=== PATIENT | male | born 1960 | race Caucasian/White ===

== ENCOUNTER 2017-09-02 10:15 | Inpatient (IN) | payer MEDICAID ==
[2017-09-02 10:47] LABS: PLATELET COUNT 372 10^3/uL (150-400)
[2017-09-02 10:57] LABS: INR 1.09 (0.83-1.16)
--- NOTE | 2017-09-02 11:22 | EDPHY ---
General Narrative: Independent physician exam I evaluated and participated in the management of the patient. I also evaluated the patient independently. My co-signature indicates that I have reviewed this chart and I agree with the findings and plan of care as documented. My personal H&P findings include: The patient presents to the ED for evaluation of increasing lower extremity swelling, redness, scrotal swelling , edema and possible urinary tract infection. The patient has a history of diabetes additional comorbidities. The patient is somewhat of a difficult historian. The patient reports he has had some chronic scrotal swelling but has developed scrotal pain. The patient does endorse symptoms of dysuria and back pain. Physical exam General Appearance: Obese male, no acute distress Eyes: Pupils equal and round no pallor or injection ENT, Mouth: Mucous membranes moist Respiratory: There are no retractions, lungs are clear to auscultation Cardiovascular: Regular rate and rhythm Gastrointestinal: Abdomen is soft and nontender, no masses, bowel sounds normal : Scrotal swelling, bilateral testicular tenderness, right greater than left Neurological: A&O, normal motor function, normal sensory exam, normal cranial nerves Skin: Warm and dry, no rashes Musculoskeletal: Neck is supple nontender Extremities: 3+ bilateral pitting edema The patient presents the emergency department with a lower extremity cellulitis , possible scrotal cellulitis, urinary tract infection, fever and SIRS criteria. The patient did not receive a 30 milligram/kilogram bolus as that he has a history of congestive heart failure. The patient did have a elevated venous lactate of 2.5. The patient received IV ceftriaxone and vancomycin. Consultation is made with the hospitalist service for admission. Consultation is also made with Urology. The patient will be admitted to the hospital by Dr. Padilla. I spoke with Dr. Jean Baptiste from Urology at 1:10 p.m.. He will see the patient in consultation. (Hernandez Bauman) CHIEF COMPLAINT: Scrotal edema, UTI, left leg wounds HISTORY OF PRESENT ILLNESS: Patient arrives by EMS with complaints of shortness of breath, lower extremity edema, testicle swelling, urinary tract infection. She reports having a left leg infection for the past 2 weeks, for which he has been taking an antibiotic. He reports increasing swelling of the legs over the past 2 weeks. He reports increasing swelling of the testicles and scrotal the past 4 days. No trauma or injury. No drainage from the penis. No sexual activity in years. He does report being told he has a urinary tract infection by primary care physician, from a urine sample provided yesterday. No antibiotics started for the urinary tract infection. He has no chest pain but does have shortness of breath and orthopnea. He has been diagnosed with CHF in the past. He does not know the name wall is medications. He resides at [facility] due to lower extremity edema and difficulty ambulating. REVIEW OF SYSTEMS: Ten systems reviewed and are negative unless otherwise noted in the HPI PCP: Dr. Kruse SPECIALISTS: Endocrinology at [facility] PAST MEDICAL HISTORY: Hypertension, dyslipidemia, congestive heart failure, diabetes type 2 SOCIAL HISTORY: Nonsmoker. No alcohol. Resides at [facility] FAMILY HISTORY: Noncontributory EXAMINATION General Appearance: Alert, no distress Head: normocephalic, atraumatic Eyes: Pupils equal and round, no conjunctival pallor or injection ENT, Mouth: Mucous membranes moist Neck: Normal inspection, supple, non-tender Respiratory: Lungs are clear to auscultation. No wheezing, rhonchi or crackles. No distress Cardiovascular: Regular rate and rhythm. No murmur Gastrointestinal: Obese abdomen is soft and nondistended. : Edematous scrotum bilaterally. Normal appearing, circumcised penis. No drainage. No erythema. No subcu air of the scrotum. No necrosis noted Neurological: A&O, nonfocal, normal gait Extremities: Nontender, 3+ symmetric pedal edema. There are venous stasis ulcers the left lower extremity with mild surrounding erythema. No palpable fluctuance. Psychiatric: Mood and affect normal DIFFERENTIAL DIAGNOSES: Including but not limited to CHF, edema, stasis ulcers, cellulitis, sepsis, hydrocele, torsion, UTI, urosepsis, pneumonia MDM: 10:20 a.m. Scrotal edema, lower extremity edema with a recent diagnosis of cellulitis of the left leg. He has been on antibiotics for 10 days due does not recall the name of that. He will yesterday by his primary care physician that he has a urinary tract infection and was told to come to the emergency department due to this in the increasing swelling of the legs of the scrotum. I have discussed with Dr. Bauman 11:30 a.m. There is leukocytosis, negative troponin, mildly elevated BNP. Lactic acid is 2.5. Urinalysis is pending. He is currently getting his ultrasounds performed at this time. The antibiotic that he has been on is doxycycline, and he has been on this since August 13. I have not ordered IV fluid due to his diastolic heart failure and significant peripheral edema. 12:07 p.m. Notified by radiologist. Ultrasounds of the lower extremities reveals edema but no DVT. Ultrasound of the scrotum and testicles reveals normal appearing testicles with bilateral hydroceles. The right is larger than the left. The right may have a pyocele present. No orchitis. Still unable to perform urinalysis as he has not provided a sample. I requested a straight catheter in the patient is currently declining. We will attempt to obtain the results from recent urinalysis from primary care physician. 12:15 p.m. Case discussed again with Dr. Bauman. Updated him regarding the ultrasound findings in the urinary tract infection by urinalysis here. He will evaluate the patient. 12:45 p.m. Patient has been evaluated by Dr. Bauman. He will be admitted to the hospital for treatment of the urinary tract infection with IV antibiotics. He will consult Urology due to the possible pyocele. Please see his note for further details. He will be admitted in stable condition. (Rony Laboy) - Diagnostics Imaging Results: Imaging Impressions Chest X-Ray 09/02/17 10:26 Impression: Hypoventilatory features with chronicity-indeterminate elevation of the right hemidiaphragm. Extremity Venous Study 09/02/17 10:27 Impression: Bilateral calf edema. No deep venous thrombosis in the right or left lower extremity. Findings discussed with Emergency Department physician operations and intelligence assistant, Rony Laboy, on September 02, 2017 at 12:07 p.m. Testicular Ultrasound 09/02/17 10:27 Impression: 1. Normal testes. No torsion, mass, or evidence of orchitis. 2. Bilateral large hydroceles, worse right than left. Septations on the right suggest pyocele. Findings discussed with Emergency Department physician operations and intelligence assistant, Rony Laboy, on September 02, 2017 at 12:16 p.m. - Objective Vital Signs: Initial Vital Signs Temperature (C) 99.5 F 09/02/17 10:27 Heart Rate 92 09/02/17 10:27 Respiratory Rate 16 09/02/17 10:27 Blood Pressure 147/75 H 09/02/17 10:27 O2 Sat (%) 92 09/02/17 10:27 O2 Delivery Mode Room Air Allergies/Adverse Reactions: Penicillins Allergy (Verified 09/02/17 10:51) Home Medications: Medication Instructions Recorded Atorvastatin Calcium [Lipitor 40 40 mg PO DAILY 09/02/17 mg (*)] Carvedilol [Coreg (*)] 3.125 mg PO BIDMEAL 09/02/17 Finasteride [Proscar 5 MG (*)] 5 mg PO DAILY 09/02/17 Furosemide [Lasix 80 MG (*)] 160 mg PO BID@08,14 09/02/17 Insulin Regular, Human [HUMULIN R] 0 unit SQ TIDMEAL 09/02/17 Miconazole Nitrate [Desenex] 1 leonard TP BID PRN 09/02/17 Oxybutynin Chloride Xl [Ditropan 5 mg PO DAILY 09/02/17 Xl 5mg (*)] Potassium Cl [Klor-Con 20 meq (*)] 20 meq PO BID 09/02/17 Pregabalin [Lyrica 50mg (*)] 100 mg PO TID 09/02/17 Sennosides/Docusate Sodium 1 each PO DAILY PRN 09/02/17 [Senna-S Tablet] Tamsulosin HCl [Flomax 0.4 MG (*)] 0.8 mg PO DAILY 09/02/17 oxyCODONE IR [Oxycodone Ir (*)] 10 mg PO Q6HRS PRN 09/02/17 Laboratory Results: Laboratory Results 09/02/17 10:18 09/02/17 10:18 09/02/17 09/02/17 09/02/17 13:30 12:24 10:35 WBC RBC Hgb Hct MCV MCH MCHC RDW Plt Count MPV Neut % (Auto) Lymph % (Auto) [place] % (Auto) Eos % (Auto) Baso % (Auto) Nucleat RBC Rel Count Absolute Neuts (auto) Absolute Lymphs (auto) Absolute Monos (auto) Absolute Eos (auto) Absolute Basos (auto) Absolute Nucleated RBC Immature Gran % Immature Gran # PT INR APTT VBG Lactic Acid 2.0 mmol/L mmol/L 2.5 mmol/L H mmol/L (0.7-2.1) (0.7-2.1) Sodium Potassium Chloride Carbon Dioxide Anion Gap BUN Creatinine Estimated GFR Glucose Hemoglobin A1c Estim Average Glucose Calcium Iron TIBC Iron Saturation Ferritin Total Bilirubin Troponin I NT-Pro-B Natriuret Pep Vitamin B12 TSH Urine Color YELLOW Urine Appearance TURBID Urine pH 6.0 (5.0-7.5) Ur Specific [place] 1.029 (1.002-1.030) Urine Protein 2+ H (NEGATIVE) Urine Ketones NEGATIVE (NEGATIVE) Urine Blood 2+ H (NEGATIVE) Urine Nitrate POSITIVE H (NEGATIVE) Urine Bilirubin NEGATIVE (NEGATIVE) Urine Urobilinogen NEGATIVE EU EU (0.2-1.0) Ur Leukocyte Esterase 3+ H (NEGATIVE) Urine RBC 50-182 /hpf H /hpf (0-3) Urine WBC 50-182 /hpf H /hpf (0-3) Ur Epithelial Cells NONE SEEN /lpf /lpf (NONE-1+) Urine Bacteria 1+ /hpf H /hpf (NONE SEEN) Urine Mucus TRACE /lpf /lpf (NONE-1+) Urine Yeast PRESENT /hpf /hpf (NONE SEEN) Urine Glucose 1+ H (NEGATIVE) 09/02/17 09/02/17 09/02/17 10:18 10:18 10:18 WBC RBC Hgb Hct MCV MCH MCHC RDW Plt Count MPV Neut % (Auto) Lymph % (Auto) [place] % (Auto) Eos % (Auto) Baso % (Auto) Nucleat RBC Rel Count Absolute Neuts (auto) Absolute Lymphs (auto) Absolute Monos (auto) Absolute Eos (auto) Absolute Basos (auto) Absolute Nucleated RBC Immature Gran % Immature Gran # PT INR APTT VBG Lactic Acid Sodium 137 mEq/L mEq/L (134-144) Potassium 3.4 mEq/L L mEq/L (3.5-5.2) Chloride 98 mEq/L mEq/L (97-110) Carbon Dioxide 25 mEq/l mEq/l (22-31) Anion Gap 14 mEq/L mEq/L (8-16) BUN 20 mg/dL mg/dL (7-23) Creatinine 1.4 mg/dL H mg/dL (0.7-1.3) Estimated GFR 52 Glucose 259 mg/dL H mg/dL (70-100) Hemoglobin A1c 11.0 % H % (4.0-6.0) Estim Average Glucose 269 mg/dL H mg/dL (68-126) Calcium 8.5 mg/dL mg/dL (8.5-10.4) Iron 17.0 mcg/dL L mcg/dL (49.0-199.0) TIBC 297 ug/dL ug/dL (260-490) Iron Saturation 6 % L % (20-55) Ferritin 102.0 ng/mL ng/mL (17.9-464.0) Total Bilirubin 0.9 mg/dL mg/dL (0.1-1.4) Troponin I 0.027 ng/mL ng/mL (0.000-0.034) NT-Pro-B Natriuret Pep 257 pg/mL H pg/mL (0-125) Vitamin B12 250 pg/mL pg/mL (239-931) TSH 3.190 uIU/mL uIU/mL (0.465-4.680) Urine Color Urine Appearance Urine pH Ur Specific [place] Urine Protein Urine Ketones Urine Blood Urine Nitrate Urine Bilirubin Urine Urobilinogen Ur Leukocyte Esterase Urine RBC Urine WBC Ur Epithelial Cells Urine Bacteria Urine Mucus Urine Yeast Urine Glucose 09/02/17 09/02/17 10:18 10:18 WBC 17.12 10^3/uL H 10^3/uL (3.80-9.50) RBC 4.48 10^6/uL 10^6/uL (4.40-6.38) Hgb 12.0 g/dL L g/dL (13.7-17.5) Hct 36.5 % L % (40.0-51.0) MCV 81.5 fL fL (81.5-99.8) MCH 26.8 pg L pg (27.9-34.1) MCHC 32.9 g/dL g/dL (32.4-36.7) RDW 13.7 % % (11.5-15.2) Plt Count 372 10^3/uL 10^3/uL (150-400) MPV 9.8 fL fL (8.7-11.7) Neut % (Auto) 83.6 % H % (39.3-74.2) Lymph % (Auto) 7.7 % L % (15.0-45.0) [place] % (Auto) 6.9 % % (4.5-13.0) Eos % (Auto) 0.6 % % (0.6-7.6) Baso % (Auto) 0.5 % % (0.3-1.7) Nucleat RBC Rel Count 0.0 % % (0.0-0.2) Absolute Neuts (auto) 14.31 10^3/uL H 10^3/uL (1.70-6.50) Absolute Lymphs (auto) 1.32 10^3/uL 10^3/uL (1.00-3.00) Absolute Monos (auto) 1.18 10^3/uL H 10^3/uL (0.30-0.80) Absolute Eos (auto) 0.11 10^3/uL 10^3/uL (0.03-0.40) Absolute Basos (auto) 0.08 10^3/uL 10^3/uL (0.02-0.10) Absolute Nucleated RBC 0.00 10^3/uL 10^3/uL (0-0.01) Immature Gran % 0.7 % % (0.0-1.1) Immature Gran # 0.12 10^3/uL H 10^3/uL (0.00-0.10) PT 14.0 SEC SEC (12.0-15.0) INR 1.09 (0.83-1.16) APTT 32.6 SEC SEC (23.0-38.0) VBG Lactic Acid Sodium Potassium Chloride Carbon Dioxide Anion Gap BUN Creatinine Estimated GFR Glucose Hemoglobin A1c Estim Average Glucose Calcium Iron TIBC Iron Saturation Ferritin Total Bilirubin Troponin I NT-Pro-B Natriuret Pep Vitamin B12 TSH Urine Color Urine Appearance Urine pH Ur Specific [place] Urine Protein Urine Ketones Urine Blood Urine Nitrate Urine Bilirubin Urine Urobilinogen Ur Leukocyte Esterase Urine RBC Urine WBC Ur Epithelial Cells Urine Bacteria Urine Mucus Urine Yeast Urine Glucose Microbiology Results: MICROBIOLOGY 09/02/17 10:30 Leg - Swab Gram Stain - Final Medications Given: Acetaminophen (Tylenol) 650 mg PO Q4HRS PRN PRN Reason: Pain, Mild/Fever, Can Take PO Stop: 03/01/18 13:46 Last Admin: 09/02/17 15:59 Dose: 650 mg Levofloxacin/Dextrose (Levaquin 750 Mg (Premix)) 150 mls @ 100 mls/hr IV DAILY ROMIE PRN Reason: Protocol Stop: 10/02/17 15:59 Last Admin: 09/02/17 16:45 Dose: 150 mls Oxycodone HCl (Oxycodone Ir) 10 mg PO Q6HRS PRN PRN Reason: Pain, Severe Stop: 09/12/17 14:38 Last Admin: 09/02/17 16:04 Dose: 10 mg Pregabalin (Lyrica) 100 mg PO TID ROMIE Stop: 03/01/18 15:59 Last Admin: 09/02/17 16:05 Dose: 100 mg Discontinued Medications Ceftriaxone Sodium/Dextrose (Rocephin 1 Gm (Premix)) 50 mls @ 100 mls/hr IV EDNOW ONE PRN Reason: Protocol Stop: 09/02/17 13:25 Last Admin: 09/02/17 13:25 Dose: 50 mls Vancomycin/Sodium Chloride (Vancomycin 1 Gm (Premix)) 250 mls @ 250 mls/hr IV EDNOW ONE PRN Reason: Protocol Stop: 09/02/17 13:55 Last Admin: 09/02/17 13:27 Dose: 250 mls Sodium Chloride (Ns) 500 mls @ 1,000 mls/hr IV EDNOW ONE PRN Reason: Protocol Stop: 09/02/17 13:27 Last Admin: 09/02/17 13:26 Dose: 500 mls Sodium Chloride (Ns) 1,000 mls @ 3,000 mls/hr IV ONCE ONE Stop: 09/02/17 14:06 Last Admin: 09/02/17 15:37 Dose: Not Given Morphine Sulfate (Morphine) 4 mg IVP EDNOW ONE Stop: 09/02/17 13:37 Last Admin: 09/02/17 13:44 Dose: 4 mg Ondansetron HCl (Zofran) 4 mg IVP EDNOW ONE Stop: 09/02/17 13:37 Last Admin: 09/02/17 13:44 Dose: 4 mg Departure - Departure Disposition: [facility] Inpatient Acute Clinical Impression: Severe sepsis, Bilateral lower leg cellulitis, Cognitive impairment, Pyelonephritis Diabetes Qualifiers: Diabetes mellitus type: type 2 Diabetes mellitus complication status: with unspecified complications Diabetes mellitus long term care administrator insulin use: unspecified assisted insulin use status Qualified Code(s): E11.8 - Type 2 diabetes mellitus with unspecified complications Condition: Fair
[2017-09-02] MEDS ORDERED: VANCOMYCIN HCL/NORMAL SALINE 250 ML IV ONE (12:56)
[2017-09-02] MEDS ORDERED: NS 500 ML IV ONE (12:58)
[2017-09-02] MEDS ORDERED: ONDANSETRON 4 MG/2 ML VIAL IVP ONE (13:36)
[2017-09-02] MEDS ORDERED: ONDANSETRON DISINTEGRATING 4 MG TAB PO PRN ×2 (13:47→15:13)
[2017-09-02] MEDS ORDERED: ACETAMINOPHEN 325 MG TAB PO PRN (13:47)
[2017-09-02] MEDS ORDERED: HYDROCODONE/APAP 5/325 TAB PO PRN (13:47)
[2017-09-02] MEDS ORDERED: ONDANSETRON 4 MG/2 ML VIAL IVP PRN ×2 (13:47→15:13)
[2017-09-02] MEDS ORDERED: NS 1,000 ML IV ONE (13:47)
[2017-09-02] MEDS ORDERED: oxyCODONE IR 5 MG TAB PO PRN (14:39)
[2017-09-02] MEDS ORDERED: MICONAZOLE NITRATE TP PRN ×2 (14:39→15:13)
[2017-09-02] MEDS ORDERED: SENNOSIDES/DOCUSATE SODIUM TAB PO PRN (14:39)
[2017-09-02] MEDS ORDERED: D50W 25 GM/50 ML SYR IVP PRN ×2 (15:06→15:13)
[2017-09-02] MEDS ORDERED: PROTOCOL POTASSIUM 1 DOSE MISC PRN ×2 (15:10→15:13)
[2017-09-02] MEDS ORDERED: MICONAZOLE NITRATE 15 GM CRTUBE TP PRN (15:23)
--- NOTE | 2017-09-02 15:47 | GHP ---
[f rep st] HISTORY AND PHYSICAL DATE OF ADMISSION: 09/02/2017 CHIEF COMPLAINT: Swollen testicles. HISTORY OF PRESENT ILLNESS: A 57-year-old male with multiple medical comorbidities who has been a re sident at a local [place] [facility] facility for the last 3 weeks after being discharged from a hospital for what t he patient reports as a heart failure admission. The patient describes that his lower extremities an d testicles have been gradually swelling over time and that he developed such severe discomfort of hi s testicles today that he asked to be evaluated. Additionally notes increasing erythema associated w ith some ulcerations on his left lower extremity with increased erythema as well. The patient endors es subjective fevers and chills. Describes some shortness of breath. Denies palpitations or chest p ain. Denies headache or vision changes. Reports normal oral intake and stools. Denies dysuria. PAST MEDICAL HISTORY: 1. Heart failure patient, unsure if it is systolic or diastolic. 2. Diabetes. 3. Hyperlipidemia. 4. Hypertension. 5. Morbid obesity, BMI of 46. 6. Obstructive sleep apnea. Patient refuses CPAP. 7. BPH. 8. Chronic pain. SOCIAL HISTORY: Patient currently lives in a [place] [facility]. Was previously homeless. Denies tobacco , alcohol or illicit drugs. FAMILY HISTORY: Positive for diabetes. ADVANCE DIRECTIVES: The patient wishes to be do not resuscitate. REVIEW OF SYSTEMS: A 10-point review of systems is negative, with the exception of that reported in the HPI. PHYSICAL EXAMINATION: VITAL SIGNS: Blood pressure is 135/64, heart rate 97, respiratory rate 18, 98 % on room air, 38.2. GENERAL: This is a morbidly obese male, sitting up in a chair. HEENT: Notabl e for dry mucous membranes. CARDIAC: Heart sounds are distant but regular. PULMONARY: Decreased b reath sounds on the right. No rales or rhonchi are appreciated. GASTROINTESTINAL: Obese, distended abdomen, positive bowel sounds. ABDOMEN: Nontender in all 4 quadrants. MUSCULOSKELETAL: Notable for 3+ pitting edema above the knees. SKIN: Exam notable for erythema at bilateral ankles, extendin g up the lateral aspect of the left leg. There are 2 open sores visible with surrounding erythema on the lateral aspect of the left leg. NEUROLOGIC: Patient is alert and oriented x3. PSYCHIATRIC: A ppears depressed. DATA: White count is 17.12, hematocrit 36.5, platelets of 372, potassium of 3.4, creatinine of 1.4 b lood glucose of 259, BNP of 257. Urinalysis shows 2+ protein, 2+ blood, positive nitrites, 3+ leukocy te esterase with red and white blood cells measuring 50-182. Chest x-ray, which I personally reviewe d and interpreted, shows no infiltrates or edema. There is right hemidiaphragm elevation. Ultrasoun d of the bilateral lower extremities reviewed, negative for deep venous thrombosis. Testicular ultra sound shows normal testes, bilateral large hydroceles, right worse than left. ASSESSMENT AND PLAN: This is a 57-year-old male presenting with testicular swelling. 1. Sepsis: The patient is presenting with leukocytosis and fever. Presumed source is urinary versu s cellulitis. Blood cultures and urine cultures were obtained from the emergency department. Fluid has been given, and empiric antibiotics with ceftriaxone and vancomycin started. 2. Acute pyelonephritis: Patient has systemic symptoms of fever, with grossly abnormal urine and a history of retention. Will send urine for culture and appropriately cover with ceftriaxone. 3. Suspected acute right heart failure: The patient has marked testicular and lower extremity edema with a clear chest x-ray. Reports untreated sleep apnea as he feels he cannot sleep well with his C PAP. Will check a transthoracic echocardiogram to evaluate pulmonary pressures in the right side of his heart, as well as ejection fraction. Will additionally attempt to get records from [facility] where he [facility] sought cardiac care. Will wait to initiate high-dose IV Lasix as the patient is addit ionally presenting septic, concerned that we may develop issues of hypotension, actively treating wit h diuretics, recommending that the patient elevate his testicles and use GENNY hose if tolerable until we can determine that his hemodynamics will remain stable on diuretics. 4. Diabetes: Will treat with sliding scale insulin and check a hemoglobin A1c. 5. Obstructive sleep apnea: Will further discuss the importance of CPAP therapy with this morbidly obese patient with clinical signs of right heart failure. 6. Normocytic anemia: I do not know what the patient's baseline is. Will need to get old records. 7. Chronic kidney disease: Patient knows that his baseline creatinine is near 1.5, which is how he is presenting. Will follow his renal function daily in the setting of antibiotics and anticipated di uretic treatment. 8. Hypokalemia: I am guessing this is from his very large doses of diuretic at the [place] [facility] [place]. W ill replete per protocol. 9. Benign prostatic hypertrophy: Will continue with home medications once we have established hemod ynamic stability. 10. Prophylaxis with Lovenox. 11. Diet: Cardiac. 12. Disposition: I expect greater than 2 midnights. The patient is quite comorbidly ill, presentin g with sepsis and what appears to be acute right heart failure. I have discussed the case with the e mergency room physician. Patient will be triaged to the medical-surgical floor for care. /[id number]/MODL
[2017-09-02] MEDS: ACETAMINOPHEN 325 MG TAB PO PRN ×2 (15:59→20:24)
[2017-09-02] MEDS ORDERED: PREGABALIN 50 MG CAP PO SCH (16:00)
[2017-09-02] MEDS: oxyCODONE IR 5 MG TAB PO PRN ×2 (16:04→22:17)
[2017-09-02] MEDS: PREGABALIN 50 MG CAP PO SCH ×2 (16:05→22:16)
[2017-09-02] MEDS ORDERED: CARVEDILOL 3.125 MG TAB PO SCH (18:00)
[2017-09-02] MEDS ORDERED: INSULIN LISPRO 100 UNIT/ML SC SCH (18:00)
[2017-09-02] MEDS: CARVEDILOL 3.125 MG TAB PO SCH (18:30)
[2017-09-02] MEDS: INSULIN LISPRO 100 UNIT/ML SC SCH (18:31)
[2017-09-02] MEDS: ENOXAPARIN 40 MG/0.4 ML SYR SC SCH (20:27)
[2017-09-02] MEDS ORDERED: INSULIN GLARGINE 100 UNITS/ML SYRINGE SC SCH (21:00)
[2017-09-02] MEDS ORDERED: POTASSIUM CL 10 MEQ TAB PO ONE (21:03)
--- NOTE | 2017-09-02 21:39 | GCON ---
[f rep st] CONSULTATION DATE OF CONSULTATION: 09/02/2017 REASON FOR CONSULTATION: Urinary tract infection with scrotal infection. HISTORY OF PRESENT ILLNESS: This is a 57-year-old male, who was brought into the emergency room via EMS Services from [facility], for swelling of his lower extremities and testicles. He also r eports that yesterday he was evaluated by the [facility] physician for painful urination and acute swelling of the right testicle. He recalls being told that he had an infection and should prob ably go to the emergency room. He has some increasing redness of the extremities on his lower legs. The patient is a relatively uncontrolled diabetic. Does have shortness of breath, known CHF. Urolo gically, patient has a history of hydronephrosis in the past, which has required a Perera catheter dur ing different hospitalizations. He says scrotal swelling is new and scrotal pain is new in the last few days. PAST MEDICAL HISTORY: Heart failure patient, diabetes, hyperlipidemia, hypertension, morbid obesity, obstructive sleep apnea, BPH, chronic pain. SOCIAL HISTORY: Lives in a snf, was homeless before. Denies tobacco, alcohol, or drugs. FAMILY HISTORY: Positive for diabetes. ALLERGIES: Penicillin. PHYSICAL EXAMINATION: VITAL SIGNS: Blood pressure 145/82, heart rate 96, O2 88 on room air, tempera ture 39.3. GENERAL: This is an obese male, in no acute distress. HEENT: Normocephalic, atraumatic . Extraocular movements intact. NECK: Supple. No lymphadenopathy. Trachea midline. RESPIRATORY: No accessory respiratory muscle use. CARDIAC: Tachycardia, regular rate. The patient has marked lower extremity edema bilaterally with what appears to possibly be lower extremity ulcers. : Abdo men is obese, nontender to palpation. No masses palpated. GI: Normal-appearing phallus, scrotal ed savage bilaterally with mild erythema to the skin. Firmness and tenderness over the right testicle and epididymis uniformly without crepitus on exam. INTEGUMENT: No obvious rashes or lesions. NEUROLOGI C: Patient is alert and oriented. Affect appropriate to situation. MUSCULOSKELETAL: Patient was s upine, moving upper extremities without difficulty. LABORATORY DATA: His white blood cell count is 17.12, hemoglobin 12, hematocrit 36.5, platelets 372. His blood gas: His lactic acid was 2.5 on admission, dropped to 2 when checked again. Chemistry: Sodium 137, potassium 3.4, chloride 98, carbon dioxide 25, anion gap 14, BUN 20, creatinine 1.4, glu cose 259, calcium 8.5, BNP 257. Urine was positive for blood, nitrites and leukocytes. The patient had a scrotal ultrasound done, which I personally reviewed myself, and along with Dr. Ma, shows b ilateral hydroceles, mild septation on the right without overwhelming radiographic evidence for pyoce le by our read. ASSESSMENT/PLAN: Urinary tract infection, right epididymitis. Recommend supportive care for this pa tient, along with IV antibiotics. We will follow along closely and monitor his progress. Scrotum is to be kept propped up and elevated. /[id number]/MODL
[2017-09-02] MEDS: VANCOMYCIN 1.25 GM in D5W 250 ML IV SCH (22:17)
[2017-09-03] MEDS: ACETAMINOPHEN 325 MG TAB PO PRN (04:37)
--- NOTE | 2017-09-03 08:23 | SOAPPROG ---
SOAP Progress Note Assessment/Plan: Assessment: right epididymitis bilateral hydroceles UTI Plan: Continue antibiotics. Stressed importance of elevating scrotum. Will repeat US for comparison. 09/03/17 08:21 Subjective: Same symptoms as yesterday Objective: Vital Signs Temp Pulse Resp BP Pulse Ox 38.9 C H 88 18 121/72 H 90 L 09/03/17 04:00 09/03/17 04:00 09/03/17 04:00 09/03/17 04:00 09/03/17 04:00 Laboratory Results 09/02/17 19:00 09/02/17 09/03/17 09/04/17 05:59 05:59 05:59 Intake Total 1100 Output Total 950 Balance 150 PT 14.0 SEC (12.0-15.0) 09/02/17 10:18 INR 1.09 (0.83-1.16) 09/02/17 10:18 Physical Exam - Physical Exam General Appearance: alert, no apparent distress Respiratory: normal breath sounds, No respiratory distress Male Genitalia: other (bilateral hydroceles with firm, minimally tender testicle on right. no erythema or induration of scrotum) Skin: normal color Neuro/Psych: no motor/sensory deficits ICD10 Worksheet Patient Problems: Problems Problem Status Onset Bilateral lower leg cellulitis Acute Cognitive impairment Acute Diabetes Acute Pyelonephritis Acute Severe sepsis Acute
[2017-09-03] MEDS ORDERED: ATORVASTATIN CALCIUM 40 MG TAB PO SCH (09:00)
[2017-09-03] MEDS ORDERED: ENOXAPARIN 40 MG/0.4 ML SYR SC SCH ×2 (09:00)
[2017-09-03] MEDS: INSULIN LISPRO 100 UNIT/ML SC SCH ×3 (09:09→17:05)
[2017-09-03] MEDS: CARVEDILOL 3.125 MG TAB PO SCH ×2 (09:10→18:04)
[2017-09-03] MEDS: ATORVASTATIN CALCIUM 40 MG TAB PO SCH (09:10)
[2017-09-03] MEDS: PREGABALIN 50 MG CAP PO SCH ×3 (09:10→21:04)
[2017-09-03] MEDS: ENOXAPARIN 40 MG/0.4 ML SYR SC SCH ×3 (09:14→21:09)
[2017-09-03] MEDS ORDERED: ALTEPLASE 2 MG VIAL IVP PRN (09:17)
--- NOTE | 2017-09-03 10:48 | PDMN ---
Medical Necessity Medical necessity: est los >2 mn for sepsis, urinary vs cellulitis, acute pyelonephritis & suspected acute R heart failure, admit for IVF, IV abx, follow cxs; hold diuresis r/t concern for hypotension; comorbid CKD, DM, heart failure , htn, obesity; per H&P & order 09/02/17
--- NOTE | 2017-09-03 11:39 | WOCRNPDOC ---
WOCRN Advanced Assessment Note - Skin Integrity Problem, Advanced Assess Left Lower Lateral Leg Venous Stasis Ulcer Dressing Type: Allevyn Life Dressing Description: Intact, Shadowed Exudate Amount: Moderate Exudate Color: Yellow Exudate Characteristic(s): Seropurulent, Thick Integumentary Issue Intervention: Dressing Changed, Mechanical Debridement My Wound Tissue: Erythema, Swollen, Lipodermatosclerosis Wound Bed Color: [place], Yellow Wound Bed Constitution: Smooth Tissue, Mixed Loose & Adhered Slough/Eschar, De- roofed Purulent Blister Wound Edges: Well Defined Skin Integrity Problem Comment: Patient describes wounds as newly occurring "blisters". Four distint wounds clustered on the left lateral aspect of the leg with moderate, yellow sloughy exudate. Cleaned with NS and mechanically debrided with gauze. Covered temporarily with Adaptic Touch and Mepilex and wrapped with Kerlix. Patient states that he "should" have compression to legs but "they never put it on me" at his place of residence. Patients legs measured for compression stockings. Size G Spandagrips tubed to RN Wayne to apply to bilateral lower legs. Wound care will round again early next week.
--- NOTE | 2017-09-03 13:58 | HOSPPROG ---
Hospitalist Progress Note Assessment/Plan: # Sepsis - 2/2 urinary source (WBC 18 and 39.3) - Blood cultures and urine cultures from ED NGTD - - received IVF hydration overnight - cont empiric antibiotics - Lasix held overnight until hemodynamic stability established # Acute pyelonephritis/epididymitis- US (reviewed) evidence of hydrocele - Patient has systemic symptoms of fever, with grossly abnormal urine and a history of retention. [facility] Urine and blood cx NGTD OSH Urine cx E.coli pansensitive - Levofloxacin resistant - urology following -do not feel pyocele present - continue ceftriaxone - follow [facility] culture results # Suspected acute right heart failure: The patient has marked testicular and lower extremity edema with a clear chest x-ray. Reports untreated sleep apnea oxygen saturations 90% on RA - TTE ordered - GENNY hose - will start IV lasix when PICC established # Diabetes- BS 250-350 overnight - not optimal control in setting of infection - HBA1c 11 on admit - clearly poor control outside as well - increase SSI to high dose - increase glargine (new) to 20 units HS # Left LE wounds/cellulitis - wound care consulting - continue vancomycin IV - cont wound care - GENNY hose # Morbid obesity - BMI 46 # Obstructive sleep apnea- CPAP # Normocytic anemia - believe near his baseline # Chronic kidney disease-Patient knows that his baseline creatinine is near 1.5 , which is how he is presenting. - Will follow his renal function daily in the setting of antibiotics and anticipated diuretic treatment. # Hypokalemia: I am guessing this is from his very large doses of diuretic at the half-way. -Will replete per protocol. # Benign prostatic hypertrophy: Will continue with home medications today # Prophylaxis with Lovenox. # Diet: Cardiac. # Disposition: I expect greater than 2 midnights. The patient is quite comorbidly ill, presenting with sepsis and what appears to be acute right heart failure. I have discussed the case with the emergency room physician. Patient will be triaged to the medical-surgical floor for care. I have discussed the case with Urology - we will proceed with current antibiotics and follow cultures Subjective: upset about swelling Objective: Vital Signs Temp Pulse Resp BP Pulse Ox 38.1 C 88 20 132/68 H 91 L 09/03/17 11:41 09/03/17 11:41 09/03/17 11:41 09/03/17 11:41 09/03/17 11:41 Laboratory Results 09/02/17 19:00 09/02/17 09/03/17 09/04/17 05:59 05:59 05:59 Intake Total 1100 Output Total 950 150 Balance 150 -150 PT 14.0 SEC (12.0-15.0) 09/02/17 10:18 INR 1.09 (0.83-1.16) 09/02/17 10:18 - Physical Exam Constitutional: obese Eyes: anicteric sclera Ears, Nose, Mouth, Throat: moist mucous membranes Cardiovascular: regular rate and rhythym Respiratory: no respiratory distress, no rales or rhonchi Gastrointestinal: normoactive bowel sounds Genitourinary: no bladder fullness Skin: normal color, other (wounds on left left drssing CDI) Musculoskeletal: No asymmetric calves Neurologic: AAOx3 Psychiatric: agitated Lymph, Heme, Immunologic: no cervical LAD ICD10 Worksheet Patient Problems: Problems Problem Status Onset Bilateral lower leg cellulitis Acute Cognitive impairment Acute Diabetes Acute Pyelonephritis Acute Severe sepsis Acute
[2017-09-03] MEDS ORDERED: INSULIN GLARGINE 100 UNITS/ML SYRINGE SC SCH (14:08)
--- NOTE | 2017-09-03 15:20 | ECHO ---
[email or web address] [address] [address] Main: [phone] Fax: Transthoracic Echocardiogram Name: YAA GAONA MR#: [id number] Study Date: 09/03/2017 Study Time: 07:47 AM Date of : 1960 Age: 57 year(s) Height: 185.4 cm (73 in.) Weight: 161.03 kg (355 lb.) BSA: 2.75 m2 Gender: Male Examination: Echo Indication: LE/testicular edema Image Quality: Contrast: Requested by: Stephanie Padilla BP: / Heart Rate: Rhythm: Indication: LE/testicular edema Procedure Staff Urban Sociologist: Jody Villaseñor Reading Physician: Sobia Gerard Requesting Provider: Conclusions: Normal size left ventricle. Mild concentric LV hypertrophy. Global hypercontractility of the left ventricle. The ejection fraction is estimated to be 70-75 %. Mildly dilated right ventricle. Mildly reduced RV function. No significant valvular disease. No prior echo Measurements: Chambers Valvular Assessment AV/MV Valvular Assessment TV/PV Normal Normal Normal Name Value Range Name Value Range Name Value Range Ao Dinah (MM): 3.5 cm (2.2 cm-3.7 AV Vmax: 1.28 m/s (1 m/s-1.7 cm) m/s) IVSd (2D): 1.3 cm (0.6 cm-1.1 AV maxP mmHg ( - ) cm) MV E Vmax: 0.66 m/s ( - ) LVDd (2D): 5.0 cm (4.2 cm-5.9 MV A Vmax: 0.85 m/s ( - ) cm) MV E/A: 0.78 ( - ) LVDs (2D): 3.1 cm (2.1 cm-4 cm) LVPWd (2D): 1.0 cm (0.6 cm-1 cm) LVEF (2D): 68 (>=54 %) EF Range: 70-75 % Continued Measurements: Chambers Valvular Assessment AV/MV Name Value Name Value LADs Lon.6 cm MV E/E' Lateral: 7.80 Patient: YAA GAONA Study Date: 09/03/2017 Page 1 of 2 07:47 AM LA Area: 30.0 cm2 Additional Vessels Name Value Ao Ascendin.4 cm Findings: Left Ventricle: Normal size left ventricle. Mild concentric LV hypertrophy. Global hypercontractility of the left ventricle. The ejection fraction is estimated to be 70-75 %. No regional wall motion abnormality. Right Ventricle: Mildly dilated right ventricle. Mildly reduced RV function. Left Atrium: The left atrium is normal in size. Right Atrium: The right atrium is normal in size. Mitral Valve: The mitral valve is normal in appearance. Tricuspid Valve: The tricuspid valve appears normal. Trivial tricuspid valve regurgitation. Pulmonic Valve: The pulmonic valve is normal in appearance. Pericardium: There is pericardial fat. Exam Comments: TDS - pt is obese and in chair.. (No Signature Object) Patient: YAA GAONA Study Date: 09/03/2017 Page 2 of 2 07:47 AM [id number]
--- NOTE | 2017-09-03 15:20 | ECHO ---
[email or web address] [address] [address] Main: [phone] Fax: Transthoracic Echocardiogram Name: YAA GAONA MR#: [id number] Study Date: 09/03/2017 Study Time: 07:47 AM Date of : 1960 Age: 57 year(s) Height: 185.4 cm (73 in.) Weight: 161.03 kg (355 lb.) BSA: 2.75 m2 Gender: Male Examination: Echo Indication: LE/testicular edema Image Quality: Contrast: Requested by: Stephanie Padilla BP: / Heart Rate: Rhythm: Indication: LE/testicular edema Procedure Staff Kid Club Attendant: Jody Villaseñor Reading Physician: Sobia Gerard Requesting Provider: Conclusions: Normal size left ventricle. Mild concentric LV hypertrophy. Global hypercontractility of the left ventricle. The ejection fraction is estimated to be 70-75 %. Mildly dilated right ventricle. Mildly reduced RV function. No significant valvular disease. No prior echo Measurements: Chambers Valvular Assessment AV/MV Valvular Assessment TV/PV Normal Normal Normal Name Value Range Name Value Range Name Value Range Ao Dinah (MM): 3.5 cm (2.2 cm-3.7 AV Vmax: 1.28 m/s (1 m/s-1.7 cm) m/s) IVSd (2D): 1.3 cm (0.6 cm-1.1 AV maxP mmHg ( - ) cm) MV E Vmax: 0.66 m/s ( - ) LVDd (2D): 5.0 cm (4.2 cm-5.9 MV A Vmax: 0.85 m/s ( - ) cm) MV E/A: 0.78 ( - ) LVDs (2D): 3.1 cm (2.1 cm-4 cm) LVPWd (2D): 1.0 cm (0.6 cm-1 cm) LVEF (2D): 68 (>=54 %) EF Range: 70-75 % Continued Measurements: Chambers Valvular Assessment AV/MV Name Value Name Value LADs Lon.6 cm MV E/E' Lateral: 7.80 Patient: YAA GAONA Study Date: 09/03/2017 Page 1 of 2 07:47 AM LA Area: 30.0 cm2 Additional Vessels Name Value Ao Ascendin.4 cm Findings: Left Ventricle: Normal size left ventricle. Mild concentric LV hypertrophy. Global hypercontractility of the left ventricle. The ejection fraction is estimated to be 70-75 %. No regional wall motion abnormality. Right Ventricle: Mildly dilated right ventricle. Mildly reduced RV function. Left Atrium: The left atrium is normal in size. Right Atrium: The right atrium is normal in size. Mitral Valve: The mitral valve is normal in appearance. Tricuspid Valve: The tricuspid valve appears normal. Trivial tricuspid valve regurgitation. Pulmonic Valve: The pulmonic valve is normal in appearance. Pericardium: There is pericardial fat. Exam Comments: TDS - pt is obese and in chair.. (No Signature Object) Patient: YAA GAONA Study Date: 09/03/2017 Page 2 of 2 07:47 AM [id number]
--- NOTE | 2017-09-03 15:20 | ECHO ---
[email or web address] [address] [address] Main: [phone] Fax: Transthoracic Echocardiogram Name: YAA GAONA MR#: [id number] Study Date: 09/03/2017 Study Time: 07:47 AM Date of : 1960 Age: 57 year(s) Height: 185.4 cm (73 in.) Weight: 161.03 kg (355 lb.) BSA: 2.75 m2 Gender: Male Examination: Echo Indication: LE/testicular edema Image Quality: Contrast: Requested by: Stephanie Padilla BP: / Heart Rate: Rhythm: Indication: LE/testicular edema Procedure Staff Machinist Linotype: Jody Villaseñor Reading Physician: Sobia Gerard Requesting Provider: Conclusions: Normal size left ventricle. Mild concentric LV hypertrophy. Global hypercontractility of the left ventricle. The ejection fraction is estimated to be 70-75 %. Mildly dilated right ventricle. Mildly reduced RV function. No significant valvular disease. No prior echo Measurements: Chambers Valvular Assessment AV/MV Valvular Assessment TV/PV Normal Normal Normal Name Value Range Name Value Range Name Value Range Ao Dinah (MM): 3.5 cm (2.2 cm-3.7 AV Vmax: 1.28 m/s (1 m/s-1.7 cm) m/s) IVSd (2D): 1.3 cm (0.6 cm-1.1 AV maxP mmHg ( - ) cm) MV E Vmax: 0.66 m/s ( - ) LVDd (2D): 5.0 cm (4.2 cm-5.9 MV A Vmax: 0.85 m/s ( - ) cm) MV E/A: 0.78 ( - ) LVDs (2D): 3.1 cm (2.1 cm-4 cm) LVPWd (2D): 1.0 cm (0.6 cm-1 cm) LVEF (2D): 68 (>=54 %) EF Range: 70-75 % Continued Measurements: Chambers Valvular Assessment AV/MV Name Value Name Value LADs Lon.6 cm MV E/E' Lateral: 7.80 Patient: YAA GAONA Study Date: 09/03/2017 Page 1 of 2 07:47 AM LA Area: 30.0 cm2 Additional Vessels Name Value Ao Ascendin.4 cm Findings: Left Ventricle: Normal size left ventricle. Mild concentric LV hypertrophy. Global hypercontractility of the left ventricle. The ejection fraction is estimated to be 70-75 %. No regional wall motion abnormality. Right Ventricle: Mildly dilated right ventricle. Mildly reduced RV function. Left Atrium: The left atrium is normal in size. Right Atrium: The right atrium is normal in size. Mitral Valve: The mitral valve is normal in appearance. Tricuspid Valve: The tricuspid valve appears normal. Trivial tricuspid valve regurgitation. Pulmonic Valve: The pulmonic valve is normal in appearance. Pericardium: There is pericardial fat. Exam Comments: TDS - pt is obese and in chair.. (No Signature Object) Patient: YAA GAONA Study Date: 09/03/2017 Page 2 of 2 07:47 AM [id number]
--- NOTE | 2017-09-03 15:43 | ASMTCMCOM ---
CM Note CM Note Notes: Pt admitted from [facility] where he has a computer terminal operator care bed. Plan is for pt to return at [place]. Faxed clinicals to [facility] at B/M today. C/M to follow. Date Signed: 09/03/2017 03:42 PM Electronically Signed By:Cheri Barajas LCSW
--- NOTE | 2017-09-03 15:43 | ASMTCMCOM ---
CM Note CM Note Notes: Pt admitted from [facility] where he has a intermediate card tender care bed. Plan is for pt to return at [place]. Faxed clinicals to [facility] at B/M today. C/M to follow. Date Signed: 09/03/2017 03:42 PM Electronically Signed By:Cheri Barajas LCSW
--- NOTE | 2017-09-03 15:43 | ASMTCMCOM ---
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 Plan is for pt to return at [place]. Faxed clinicals to [facility] at B/M today. C/M to follow. Date Signed: 09/03/2017 03:42 PM Electronically Signed By:Cheri Barajas LCSW
[2017-09-03] MEDS: FUROSEMIDE 40 MG/4 ML VIAL IVP SCH (16:21)
[2017-09-03 16:30] LABS: PLATELET COUNT 336 10^3/uL (150-400)
[2017-09-03] MEDS: VANCOMYCIN 1.25 GM in D5W 250 ML IV SCH (16:59)
[2017-09-03] MEDS: oxyCODONE IR 5 MG TAB PO PRN (21:03)
[2017-09-04] MEDS ORDERED: VANCOMYCIN 1.25 GM in D5W 250 ML IV SCH (05:00)
[2017-09-04] MEDS ORDERED: POTASSIUM CL 10 MEQ TAB PO ONE ×2 (05:49→13:12)
[2017-09-04] MEDS: INSULIN LISPRO 100 UNIT/ML SC SCH ×3 (06:02→18:14)
[2017-09-04] MEDS: FUROSEMIDE 40 MG/4 ML VIAL IVP SCH ×2 (09:29→14:24)
[2017-09-04] MEDS: PREGABALIN 50 MG CAP PO SCH ×3 (09:31→22:08)
[2017-09-04] MEDS: CARVEDILOL 3.125 MG TAB PO SCH ×2 (09:31→18:15)
[2017-09-04] MEDS: ATORVASTATIN CALCIUM 40 MG TAB PO SCH (09:31)
[2017-09-04] MEDS: ENOXAPARIN 40 MG/0.4 ML SYR SC SCH ×2 (09:32→22:13)
--- NOTE | 2017-09-04 09:36 | HOSPPROG ---
Hospitalist Progress Note Assessment/Plan: Begin 932 # Sepsis - 2/2 urinary source (WBC 18 and 39.3) - Blood cultures negative. Urine culture growing e. coli. Continue current Ceftriaxone. I think we can stop vancomycin at this time. # Acute pyelonephritis vs epididymitis vs scrotal cellulitis - US (reviewed) evidence of hydrocele -Patient has systemic symptoms of fever, with grossly abnormal urine and a history of retention. Continue ceftriaxone. # Suspected acute right heart failure - echo without any evidence of systolic or diastolic HF. # DM2 - uncontrolled with A1c of 11%. Will need to increase Lantus. Will increase conservatively to 25u for now. Patient normally used u500 outside of hospital. Continue TID AC sliding scale. # Left LE wounds/cellulitis - wound care consulting # Morbid obesity - BMI 46 # Obstructive sleep apnea- I do not believe patient is compliant with CPAP # Normocytic anemia - believe near his baseline # Chronic kidney disease- baseline estimated around 1.5. 1.9 today. Repeat daily considering diuresis and vancomycin. # Hypokalemia - normal today at 3.8. # Benign prostatic hypertrophy: Will continue with home medications today # Bowel/Bladder - bowel regimen in place. # DVT prophylaxis - Lovenox. # Dispo - patient resident at [facility]. Subjective: No acute events overnight. Patient states he normally used U500 insulin at home. Reviewed with pharmacy and we do not have on formulary at this time. Patient was anticipating a cardiac diet but we discussed that we'll continue current diet in place for now. Objective: Vital Signs Temp Pulse Resp BP Pulse Ox 37.2 C 73 18 146/80 H 95 09/04/17 04:00 09/04/17 04:00 09/04/17 04:00 09/04/17 04:00 09/04/17 04:00 Laboratory Results 09/04/17 05:00 09/04/17 05:00 09/03/17 09/04/17 09/05/17 05:59 05:59 05:59 Intake Total 1100 1900 Output Total 950 1950 Balance 150 -50 PT 14.0 SEC (12.0-15.0) 09/02/17 10:18 INR 1.09 (0.83-1.16) 09/02/17 10:18 - Physical Exam Constitutional: no apparent distress, appears nourished, not in pain Cardiovascular: regular rate and rhythym, no murmur, rub, or gallop Respiratory: no respiratory distress, no rales or rhonchi, clear to auscultation Gastrointestinal: normoactive bowel sounds, soft, non-tender abdomen, no palpable masses Genitourinary: No recinos in urethra Skin: other (erythematous and swollen scrotum. Not tense.) ICD10 Worksheet Patient Problems: Problems Problem Status Onset Bilateral lower leg cellulitis Acute Cognitive impairment Acute Diabetes Acute Pyelonephritis Acute Severe sepsis Acute
[2017-09-04] MEDS: oxyCODONE IR 5 MG TAB PO PRN ×2 (15:45→22:09)
[2017-09-04] MEDS ORDERED: INSULIN GLARGINE 100 UNITS/ML SYRINGE SC SCH ×2 (21:00)
[2017-09-05 05:26] LABS: PLATELET COUNT 330 10^3/uL (150-400)
[2017-09-05] MEDS: ENOXAPARIN 40 MG/0.4 ML SYR SC SCH ×2 (08:49→20:28)
[2017-09-05] MEDS ORDERED: D50W 25 GM/50 ML SYR IVP PRN (09:31)
[2017-09-05] MEDS: FUROSEMIDE 40 MG/4 ML VIAL IVP SCH ×2 (09:33→13:51)
[2017-09-05] MEDS: INSULIN LISPRO 100 UNIT/ML SC SCH ×3 (09:37→17:20)
[2017-09-05] MEDS: oxyCODONE IR 5 MG TAB PO PRN ×3 (09:38→20:29)
[2017-09-05] MEDS: PREGABALIN 50 MG CAP PO SCH ×3 (09:39→20:29)
[2017-09-05] MEDS: ATORVASTATIN CALCIUM 40 MG TAB PO SCH (09:39)
[2017-09-05] MEDS: CARVEDILOL 3.125 MG TAB PO SCH ×2 (09:40→17:20)
[2017-09-05] MEDS: INSULIN GLARGINE 100 UNITS/ML SYRINGE SC SCH ×2 (10:03→20:28)
--- NOTE | 2017-09-05 17:37 | HOSPPROG ---
Hospitalist Progress Note Assessment/Plan: Begin 932 # Sepsis - 2/2 urinary source (WBC 18 and 39.3) - Blood cultures negative. Urine culture growing e. coli. Continue current Ceftriaxone. I think we can stop vancomycin at this time. # scrotal cellulitis, orchitis - US (reviewed) evidence of hydrocele, orchitis. Continue ceftriaxone based upon urine culture results. WBC is improving with Ceftriaxone and without vancomycin. # Acute/Chronic right heart failure - echo is showing dilated RV and reduced RV function. Patient was on 160mg of Lasix PO as outpatient. Increase to 60mg qAM and 40mg in afternoon. # DM2 - uncontrolled with A1c of 11%. Will need to increase Lantus. Will increase conservatively to 50u BID. Patient normally used u500 outside of hospital. Continue very high dose Humalog TID AC sliding scale. # Left LE wounds/cellulitis - wound care consulting # Obstructive sleep apnea- I do not believe patient is compliant with CPAP. I did discuss with him that untreated CPAP can lead to right sided heart failure. # Chronic kidney disease- baseline estimated around 1.5. 1.6 today. Repeat daily considering diuresis. # Benign prostatic hypertrophy: Will continue with home medications today # Bowel/Bladder - bowel regimen in place. # DVT prophylaxis - Lovenox. # Dispo - patient resident at [facility]. Subjective: No acute events overnight. Patient states his scrotum still seems quite swollen but no subjective fevers or chills. He does state good urine output. We did discuss his right sided heart findings and that I think this likely explains his LE edema. Objective: Vital Signs Temp Pulse Resp BP Pulse Ox 37.4 C 80 15 138/74 H 94 09/05/17 16:40 09/05/17 16:40 09/05/17 16:40 09/05/17 16:40 09/05/17 16:40 Laboratory Results 09/05/17 05:00 09/05/17 13:05 09/04/17 09/05/17 09/06/17 05:59 05:59 05:59 Intake Total 1900 2300 1025 Output Total 4409 3260 1300 Balance -50 -1150 -275 PT 14.0 SEC (12.0-15.0) 09/02/17 10:18 INR 1.09 (0.83-1.16) 09/02/17 10:18 - Physical Exam Constitutional: no apparent distress, appears nourished, not in pain Cardiovascular: regular rate and rhythym, no murmur, rub, or gallop, edema (2+ pitting both LE's. Scrotal edema about grapefruit sized.) Respiratory: no respiratory distress, no rales or rhonchi, clear to auscultation Gastrointestinal: normoactive bowel sounds, soft, non-tender abdomen, no palpable masses Genitourinary: No recinos in urethra Skin: other (lessened erythema of scrotum.) ICD10 Worksheet Patient Problems: Problems Problem Status Onset Bilateral lower leg cellulitis Acute Cognitive impairment Acute Diabetes Acute Pyelonephritis Acute Severe sepsis Acute
[2017-09-06] MEDS: oxyCODONE IR 5 MG TAB PO PRN ×2 (03:48→21:01)
[2017-09-06 04:39] LABS: PLATELET COUNT 432 10^3/uL (150-400)
[2017-09-06] MEDS: FUROSEMIDE 40 MG/4 ML VIAL IVP SCH (08:22)
[2017-09-06] MEDS: INSULIN LISPRO 100 UNIT/ML SC SCH ×3 (08:22→18:10)
[2017-09-06] MEDS: ATORVASTATIN CALCIUM 40 MG TAB PO SCH (08:23)
[2017-09-06] MEDS: CARVEDILOL 3.125 MG TAB PO SCH ×2 (08:23→18:10)
[2017-09-06] MEDS: INSULIN GLARGINE 100 UNITS/ML SYRINGE SC SCH ×2 (08:27→21:05)
[2017-09-06] MEDS: PREGABALIN 50 MG CAP PO SCH ×3 (08:31→21:01)
[2017-09-06] MEDS: ENOXAPARIN 40 MG/0.4 ML SYR SC SCH ×2 (08:39→21:02)
[2017-09-06] MEDS ORDERED: FUROSEMIDE 40 MG/4 ML VIAL IVP SCH (14:00)
--- NOTE | 2017-09-06 14:49 | HOSPPROG ---
Hospitalist Progress Note Assessment/Plan: # Sepsis - 2/2 urinary source (WBC 18 and 39.3) - Blood cultures negative. Urine culture growing e. coli. Continue current Ceftriaxone. Vancomycin was stopped. # scrotal cellulitis, orchitis - US (reviewed) evidence of hydrocele and right sided orchitis. Continue ceftriaxone based upon urine culture results. WBC is up slightly to 14 today from 12 yesterday. No fevers but he does not cloudier appearing urine. Repeat UA and urine culture ordered. I did adjust Ceftriaxone dose to 2g from 1g today with the WBC elevation. Continue ice and elevation and diuresis. # Acute/Chronic right heart failure - echo is showing dilated RV and reduced RV function. Patient was on 160mg of Lasix PO as outpatient. Increase to 60mg qAM and 40mg in afternoon. Continue daily weights (discussed with nursing today ). # DM2 - uncontrolled with A1c of 11%. Some improvement over prior days but still in high 200's. Will need to increase Lantus again to 60u BID. Patient normally used u500 outside of hospital. Continue very high dose Humalog TID AC sliding scale. # Left LE wounds/cellulitis - wound care consulting # Obstructive sleep apnea- I do not believe patient is compliant with CPAP. I did discuss with him that untreated CPAP can lead to right sided heart failure. He states he has been told this in the past as well. # Chronic kidney disease- baseline estimated around 1.5. Repeat daily considering diuresis but he has tolerated increased doses of lasix. # Benign prostatic hypertrophy: Will continue with Flomax and finasteride. # Bowel/Bladder - bowel regimen in place. # DVT prophylaxis - Lovenox. # Dispo - PT ordered. Patient resident at [facility]. Subjective: Patient states his scrotal swelling seems slightly increased from yesterday. He is placing an ice pack under the scrotum. PT did work with him today and he was able to stand but not ambulate outside the room. Objective: Vital Signs Temp Pulse Resp BP Pulse Ox 36.9 C 78 20 151/88 H 93 09/06/17 08:20 09/06/17 08:23 09/06/17 08:20 09/06/17 08:23 09/06/17 08:20 Laboratory Results 09/06/17 03:50 09/06/17 03:50 10/09/06/17 09/07/17 05:59 05:59 05:59 Intake Total 2300 3125 50 Output Total 3450 2300 600 Balance -1150 825 -550 PT 14.0 SEC (12.0-15.0) 09/02/17 10:18 INR 1.09 (0.83-1.16) 09/02/17 10:18 - Physical Exam Constitutional: no apparent distress, appears nourished, not in pain Cardiovascular: regular rate and rhythym, no murmur, rub, or gallop Respiratory: no respiratory distress, no rales or rhonchi, clear to auscultation Gastrointestinal: normoactive bowel sounds, soft, non-tender abdomen, no palpable masses Genitourinary: No recinos in urethra Skin: other (decreased erythema of scrotum but persistent edema.) ICD10 Worksheet Patient Problems: Problems Problem Status Onset Bilateral lower leg cellulitis Acute Cognitive impairment Acute Diabetes Acute Pyelonephritis Acute Severe sepsis Acute
--- NOTE | 2017-09-06 15:58 | ASMTCMCOM ---
CM Note CM Note Notes: Plan is for patient to return to [facility]. He is however not ready to discharge. Case management will continue to follow for discharge needs. Date Signed: 09/06/2017 03:58 PM Electronically Signed By:ORVILLE Clifton
--- NOTE | 2017-09-06 15:58 | ASMTCMCOM ---
CM Note CM Note Notes: Plan is for patient to return to [facility]. He is however not ready to discharge. Case management will continue to follow for discharge needs. Date Signed: 09/06/2017 03:58 PM Electronically Signed By:ORVILLE Clifton
--- NOTE | 2017-09-06 15:58 | ASMTCMCOM ---
CM Note CM Note Notes: Plan is for patient to return to [facility]. He is however not ready to discharge. Case management will continue to follow for discharge needs. Date Signed: 09/06/2017 03:58 PM Electronically Signed By:ORVILLE Clifton
--- NOTE | 2017-09-06 16:55 | ASMTCMCOM ---
CM Note CM Note Notes: Received message from Kristal Salmon that she was notified that patient can return to [facility]. Case management will followup with [facility] and Speak with Jenny from [place] in the morning. Date Signed: 09/06/2017 04:54 PM Electronically Signed By:ORVILLE Clifton
--- NOTE | 2017-09-06 16:55 | ASMTCMCOM ---
CM Note CM Note Notes: Received message from Kristal Salmon that she was notified that patient can return to [facility]. Case management will followup with [facility] and Speak with Jenny from [place] in the morning. Date Signed: 09/06/2017 04:54 PM Electronically Signed By:ORVILLE Clifton
--- NOTE | 2017-09-06 16:55 | ASMTCMCOM ---
CM Note CM Note Notes: Received message from Kristal Salmon that she was notified that patient can return to [facility]. Case management will followup with [facility] and Speak with Jenny from [place] in the morning. Date Signed: 09/06/2017 04:54 PM Electronically Signed By:ORVILLE Clifton
[2017-09-07] MEDS: SENNOSIDES/DOCUSATE SODIUM TAB PO PRN (06:12)
[2017-09-07] MEDS: oxyCODONE IR 5 MG TAB PO PRN ×3 (06:12→21:09)
[2017-09-07 06:59] LABS: PLATELET COUNT 438 10^3/uL (150-400)
[2017-09-07] MEDS: TAMSULOSIN HCL 0.4 MG CAP PO SCH (08:25)
[2017-09-07] MEDS: PREGABALIN 50 MG CAP PO SCH ×3 (08:25→21:09)
[2017-09-07] MEDS: FINASTERIDE 5 MG TAB PO SCH (08:26)
[2017-09-07] MEDS: CARVEDILOL 3.125 MG TAB PO SCH ×2 (08:26→17:46)
[2017-09-07] MEDS: ATORVASTATIN CALCIUM 40 MG TAB PO SCH (08:27)
[2017-09-07] MEDS: ACETAMINOPHEN 325 MG TAB PO PRN (08:30)
[2017-09-07] MEDS: INSULIN LISPRO 100 UNIT/ML SC SCH ×3 (08:32→17:47)
[2017-09-07] MEDS: INSULIN GLARGINE 100 UNITS/ML SYRINGE SC SCH ×2 (08:32→21:10)
[2017-09-07] MEDS: ENOXAPARIN 40 MG/0.4 ML SYR SC SCH ×2 (08:34→20:30)
[2017-09-07] MEDS: FUROSEMIDE 40 MG/4 ML VIAL IVP SCH ×2 (08:35→16:05)
[2017-09-07] MEDS ORDERED: cefTRIAXone 2 GM in D5W 50 ML IV SCH (09:00)
--- NOTE | 2017-09-07 09:08 | HOSPPROG ---
Hospitalist Progress Note Assessment/Plan: # sepsis - resolved # scrotal cellulitis - UCx with e. coli - will change to ancef to cover skin tracy and e. coli # LE edema/ulcers - combination R sided HF, venous insufficiency - diuresis and wound care, compression wraps # R sided HF - cont diuretics # TEJ - CPAP ordered - he is somewhat intolerant # CKD - at baseline SCr 1.5 - follow daily # DM - A1c 11%; significant hyperglycemia here - U500 at home, somewhere around 300U/day reported - increase lantus to 80U bid - cont SSI # BPH - flomax # anemia - stable # thrombocytosis - reactive, follow # lovenox - patient refusing Subjective: appears depressed; tells me his scrotum is getting bigger Objective: Vital Signs Temp Pulse Resp BP Pulse Ox 36.7 C 81 18 146/81 H 94 09/07/17 08:12 09/07/17 08:12 09/07/17 08:12 09/07/17 08:12 09/07/17 08:12 Laboratory Results 09/07/17 06:30 09/07/17 06:30 09/06/17 09/07/17 09/08/17 05:59 05:59 05:59 Intake Total 3125 2490 Output Total 2300 2020 Balance 825 470 PT 14.0 SEC (12.0-15.0) 09/02/17 10:18 INR 1.09 (0.83-1.16) 09/02/17 10:18 chart reviewed US reviewed - Physical Exam Constitutional: obese Cardiovascular: regular rate and rhythym, no murmur, rub, or gallop Respiratory: no respiratory distress, no rales or rhonchi, clear to auscultation Gastrointestinal: normoactive bowel sounds, soft, non-tender abdomen, no palpable masses Genitourinary: other (scrotum very large, erythematous) Musculoskeletal: other (bilat LE with significant edema, erythema) ICD10 Worksheet Patient Problems: Problems Problem Status Onset Severe sepsis Acute Bilateral lower leg cellulitis Acute Diabetes Acute Cognitive impairment Acute Pyelonephritis Acute
[2017-09-07] MEDS: ceFAZolin 2 GM in D5W 100 ML IV SCH ×2 (09:52→17:46)
[2017-09-07] MEDS: METOLAZONE 2.5 MG TAB PO SCH (10:37)
--- NOTE | 2017-09-07 12:52 | WOCRNPDOC ---
WOCRN Advanced Assessment Note - Skin Integrity Problem, Advanced Assess Left Lower Lateral Leg Venous Stasis Ulcer Dressing Type: Alginate (Durafiber Ag), Allevyn Life (x2), Other Other Dressing Type: Spandagrip compression size G Dressing Description: Intact Exudate Color: Yellow Exudate Characteristic(s): Seropurulent Integumentary Issue Intervention: Visualized Under Dressing My Wound Tissue: Erythema, Hot, Swollen, Lipodermatosclerosis, Venous Dermatitis My Wound Swelling: Moderate Wound Bed Color: Yellow Wound Bed Constitution: Smooth Tissue (non-granulating), Loose Slough Site Odor: None Skin Integrity Problem Comment: Assessed wound by rolling up existing Spandagrip compression stocking and peeling back Allevyn dressings. Wound appearance unchanged since assessment on Monday 09/03. There are 4 discrete, circular-shaped wounds (the largest of which is 1.5cm in diameter) along the lateral aspect of patient's LLE, filled w/ loose, liquid slough. The left leg continues to be larger than the right (L 23cm, R 21.5cm), though both lower extremities are edematous. While there is erythema in the periwound tissues, patient also has erythema along this same location on the R leg. Both extremities have skin and tissue alterations associated w/ venous insufficiency. Changed orders to Hydrofera Blue as the primary dressing to confer some antimicrobial benefit, and added cleansing w/ hypochlorus acid solution during dressing changes. He will require ongoing wound care for wounds that, I suspect, are chronic in nature. Recommend ongoing compression and elevation, but this also has to be carefully managed r/t CHF. He would benefit from assessment and treatment by [facility].
[2017-09-08] MEDS: ceFAZolin 2 GM in D5W 100 ML IV SCH ×3 (00:49→18:11)
[2017-09-08 05:03] LABS: PLATELET COUNT 377 10^3/uL (150-400)
[2017-09-08] MEDS: INSULIN LISPRO 100 UNIT/ML SC SCH ×3 (08:38→18:10)
[2017-09-08] MEDS: INSULIN GLARGINE 100 UNITS/ML SYRINGE SC SCH ×3 (08:39→20:35)
[2017-09-08] MEDS: FUROSEMIDE 40 MG/4 ML VIAL IVP SCH ×2 (08:40→16:05)
[2017-09-08] MEDS: ATORVASTATIN CALCIUM 40 MG TAB PO SCH (08:50)
[2017-09-08] MEDS: PREGABALIN 50 MG CAP PO SCH ×3 (08:50→20:35)
[2017-09-08] MEDS: CARVEDILOL 3.125 MG TAB PO SCH ×2 (08:50→18:11)
[2017-09-08] MEDS: FINASTERIDE 5 MG TAB PO SCH (08:51)
[2017-09-08] MEDS: METOLAZONE 2.5 MG TAB PO SCH (08:51)
[2017-09-08] MEDS: TAMSULOSIN HCL 0.4 MG CAP PO SCH (08:51)
[2017-09-08] MEDS: ENOXAPARIN 40 MG/0.4 ML SYR SC SCH ×2 (08:52→20:26)
[2017-09-08] MEDS ORDERED: METOLAZONE 5 MG TAB PO ONE (09:36)
[2017-09-08] MEDS ORDERED: INSULIN GLARGINE 100 UNITS/ML SYRINGE SC ONE (09:45)
--- NOTE | 2017-09-08 09:49 | HOSPPROG ---
Hospitalist Progress Note Assessment/Plan: # sepsis - resolved # scrotal cellulitis - UCx with e. coli - will change to ancef to cover skin tracy and e. coli # LE edema/ulcers - combination R sided HF, venous insufficiency - diuresis and wound care, compression wraps # R sided HF - cont diuretics (lasix 60 IV bid + metolazone 5mg) # TEJ - CPAP ordered - he is somewhat intolerant # CKD - at baseline SCr 1.6 - follow daily # DM - A1c 11%; significant hyperglycemia here - U500 at home, somewhere around 300U/day reported - increase lantus to 100U bid - cont SSI # BPH - flomax # anemia - stable # thrombocytosis - reactive, follow # lovenox - patient refusing Subjective: he is not sure if the redness better; still painful Objective: Vital Signs Temp Pulse Resp BP Pulse Ox 36.6 C 86 22 H 171/87 H 90 L 09/08/17 08:19 09/08/17 08:19 09/08/17 08:19 09/08/17 08:19 09/08/17 08:19 Laboratory Results 09/08/17 04:47 09/08/17 04:47 09/07/17 09/08/17 09/09/17 05:59 05:59 05:59 Intake Total 2490 3200 Output Total 2019 350 Balance 470 2850 PT 14.0 SEC (12.0-15.0) 09/02/17 10:18 INR 1.09 (0.83-1.16) 09/02/17 10:18 high risk on high dose diuretics - Physical Exam Constitutional: obese Ears, Nose, Mouth, Throat: moist mucous membranes, hearing normal Cardiovascular: regular rate and rhythym, no murmur, rub, or gallop Respiratory: no respiratory distress, no rales or rhonchi, clear to auscultation Gastrointestinal: normoactive bowel sounds, soft, non-tender abdomen, no palpable masses Musculoskeletal: other (markedly edematous and erythematous scrotum; bilat LE edema) ICD10 Worksheet Patient Problems: Problems Problem Status Onset Severe sepsis Acute Bilateral lower leg cellulitis Acute Diabetes Acute Cognitive impairment Acute Pyelonephritis Acute
[2017-09-08] MEDS ORDERED: METOLAZONE 2.5 MG TAB PO ONE (10:00)
[2017-09-08] MEDS: AVEENO LOTION TP SCH ×2 (12:32→20:36)
[2017-09-08] MEDS: POTASSIUM CL 20 MEQ TAB PO SCH (12:40)
[2017-09-08] MEDS: oxyCODONE IR 5 MG TAB PO PRN (16:03)
[2017-09-09] MEDS: ceFAZolin 2 GM in D5W 100 ML IV SCH ×3 (01:44→17:15)
[2017-09-09 05:23] LABS: PLATELET COUNT 398 10^3/uL (150-400)
[2017-09-09] MEDS ORDERED: INSULIN GLARGINE 100 UNITS/ML SYRINGE SC SCH (06:00)
[2017-09-09] MEDS: PREGABALIN 50 MG CAP PO SCH ×3 (08:31→21:56)
[2017-09-09] MEDS: TAMSULOSIN HCL 0.4 MG CAP PO SCH (08:32)
[2017-09-09] MEDS: ATORVASTATIN CALCIUM 40 MG TAB PO SCH (08:33)
[2017-09-09] MEDS: METOLAZONE 2.5 MG TAB PO SCH ×2 (08:33→10:43)
[2017-09-09] MEDS: CARVEDILOL 3.125 MG TAB PO SCH ×2 (08:33→18:05)
[2017-09-09] MEDS: FINASTERIDE 5 MG TAB PO SCH (08:33)
[2017-09-09] MEDS: INSULIN GLARGINE 100 UNITS/ML SYRINGE SC SCH ×4 (08:33→21:57)
[2017-09-09] MEDS: POTASSIUM CL 20 MEQ TAB PO SCH (08:33)
[2017-09-09] MEDS: ENOXAPARIN 40 MG/0.4 ML SYR SC SCH ×2 (08:34→21:34)
[2017-09-09] MEDS: FUROSEMIDE 40 MG/4 ML VIAL IVP SCH ×2 (08:34→15:21)
[2017-09-09] MEDS: INSULIN LISPRO 100 UNIT/ML SC SCH ×3 (08:34→18:06)
[2017-09-09] MEDS: AVEENO LOTION TP SCH ×2 (08:35→22:06)
--- NOTE | 2017-09-09 08:40 | HOSPPROG ---
Hospitalist Progress Note Assessment/Plan: # sepsis - resolved # scrotal cellulitis - UCx with e. coli - cont ancef # LE edema/ulcers - combination R sided HF, venous insufficiency - diuresis and wound care, compression wraps # R sided HF - cont diuretics (lasix 60 IV bid + metolazone 5mg) - follow SCr and lytes carefully # TEJ - CPAP ordered - he is somewhat intolerant # CKD - at baseline creatinine # DM - A1c 11%; significant hyperglycemia here - U500 at home, somewhere around 300U/day reported - increase lantus to 115U bid - cont SSI # BPH - flomax # anemia - stable # thrombocytosis - reactive, follow # lovenox - patient refusing Subjective: feels that his scrotum may be slightly smaller today Objective: Vital Signs Temp Pulse Resp BP Pulse Ox 36.9 C 90 17 130/90 H 89 L 09/09/17 07:31 09/09/17 08:33 09/09/17 07:31 09/09/17 08:33 09/09/17 07:31 Microbiology 09/06/17 17:50 Urine Culture - Final Urine,Clean Catch Lissa [place] Laboratory Results 09/09/17 05:00 09/09/17 05:00 09/08/17 09/09/17 09/10/17 05:59 05:59 05:59 Intake Total 3200 2500 100 Output Total 350 900 Balance 2850 1600 100 PT 14.0 SEC (12.0-15.0) 09/02/17 10:18 INR 1.09 (0.83-1.16) 09/02/17 10:18 high risk on IV diuretics - Physical Exam Constitutional: obese Cardiovascular: regular rate and rhythym, no murmur, rub, or gallop Respiratory: no respiratory distress, no rales or rhonchi, clear to auscultation Gastrointestinal: normoactive bowel sounds, soft, non-tender abdomen, no palpable masses Genitourinary: other (significantly enlarged and erythematous scrotum) Musculoskeletal: other (marked bilat LE edema) ICD10 Worksheet Patient Problems: Problems Problem Status Onset Severe sepsis Acute Bilateral lower leg cellulitis Acute Diabetes Acute Cognitive impairment Acute Pyelonephritis Acute
[2017-09-09] MEDS: oxyCODONE IR 5 MG TAB PO PRN ×2 (09:35→15:21)
--- NOTE | 2017-09-09 10:58 | ASMTCMCOM ---
CM Note CM Note Notes: Delia at [facility] asked for last two days of prog notes which were faxed. Pt may not be ready for DC for a few more days. Spoke with Delia about possibility of pt going to wound clinic after DC and she was in agreement. C/M to follow. Date Signed: 09/09/2017 10:57 AM Electronically Signed By:Cheri Barajas LCSW
--- NOTE | 2017-09-09 10:58 | ASMTCMCOM ---
CM Note CM Note Notes: Delia at [facility] asked for last two days of prog notes which were faxed. Pt may not be ready for DC for a few more days. Spoke with Delia about possibility of pt going to wound clinic after DC and she was in agreement. C/M to follow. Date Signed: 09/09/2017 10:57 AM Electronically Signed By:Cheri Barajas LCSW
--- NOTE | 2017-09-09 11:15 | WOCRNPDOC ---
MIYA Advanced Assessment Note - Skin Integrity Problem, Advanced Assess Left Lower Lateral Leg Venous Stasis Ulcer Dressing Type: Trace Bandage, Allevyn Life, Hydrofera Blue Ready Dressing Description: Clean/Dry, Intact Exudate Amount: Minimal Exudate Color: Yellow Exudate Characteristic(s): Serous Integumentary Issue Intervention: Dressing Changed My Wound Tissue: Erythema, Swollen, Lipodermatosclerosis My Wound Swelling: Moderate Wound Bed Color: Albert Lea Wound Bed Constitution: Smooth Tissue, Mixed Loose & Adhered Slough/Eschar Wound Edges: Well Defined Skin Integrity Problem Comment: Patient with spandigrips in place and up in chair where he "always is". Patient states compression to extremities is "going OK". Legs appear less swollen than my last encounter with this patient. Spandigrip and dressings removed from left lower leg. Wounds with less exudate than last week but still with yellow, sloughy drainage. Wounds cleansed with Vashe and gauze. Patient reports tenderness to this area and requested pain medication from his MICHAEL Billings. Skin prep applied to my wound tissue. Half of a Hydrofera Blue Ready was placed over the wound bed and an Allevyn life to hold in place. Smaller Allevyn life placed over anterior leg where it appears an old wound had healed and the skin sloughed off. Patient's spandigrip reapplied to leg. Patient tolerated dressing change well. Report given to MICHAEL Billings. As I see improvement to this wound and surrounding tissue, will continue with current plan.
[2017-09-10] MEDS: ceFAZolin 2 GM in D5W 100 ML IV SCH ×3 (01:38→17:54)
[2017-09-10 06:04] LABS: PLATELET COUNT 484 10^3/uL (150-400)
[2017-09-10] MEDS: POTASSIUM CL 20 MEQ TAB PO SCH (09:50)
[2017-09-10] MEDS: ATORVASTATIN CALCIUM 40 MG TAB PO SCH (09:50)
[2017-09-10] MEDS: METOLAZONE 2.5 MG TAB PO SCH (09:50)
[2017-09-10] MEDS: TAMSULOSIN HCL 0.4 MG CAP PO SCH (09:51)
[2017-09-10] MEDS: FINASTERIDE 5 MG TAB PO SCH (09:51)
[2017-09-10] MEDS: ENOXAPARIN 40 MG/0.4 ML SYR SC SCH ×2 (09:51→22:19)
[2017-09-10] MEDS: PREGABALIN 50 MG CAP PO SCH ×3 (09:51→21:35)
[2017-09-10] MEDS: INSULIN LISPRO 100 UNIT/ML SC SCH ×3 (09:52→18:13)
[2017-09-10] MEDS: CARVEDILOL 3.125 MG TAB PO SCH ×2 (09:52→17:54)
[2017-09-10] MEDS: INSULIN GLARGINE 100 UNITS/ML SYRINGE SC SCH ×4 (09:52→21:36)
[2017-09-10] MEDS: AVEENO LOTION TP SCH ×2 (09:53→21:36)
[2017-09-10] MEDS: FUROSEMIDE 40 MG/4 ML VIAL IVP SCH (09:53)
[2017-09-10] MEDS: oxyCODONE IR 5 MG TAB PO PRN ×2 (10:16→15:56)
--- NOTE | 2017-09-10 11:39 | HOSPPROG ---
Hospitalist Progress Note Assessment/Plan: # sepsis - resolved # scrotal cellulitis - UCx with e. coli; white count has not normalized; pct relatively low - cont ancef - urology will reevaluate today to help decide on abx duration # R sided HF, venous insufficiency, LE edema and ulcers - feeling lightheaded today - will check orthostatics and hold lasix in pm - diuresis and wound care, compression wraps - follow SCr and lytes carefully # TEJ - CPAP ordered - he did not tolerate last night # CKD - at baseline creatinine; follow daily # DM - A1c 11%; significant hyperglycemia here - U500 at home, somewhere around 300U/day reported - increase lantus again today - cont SSI # BPH - flomax # anemia - stable # thrombocytosis - reactive, follow # lovenox - patient has been refusing Subjective: feels his scrotum is smaller Objective: Vital Signs Temp Pulse Resp BP Pulse Ox 36.7 C 81 18 129/94 H 92 09/10/17 07:42 09/10/17 09:52 09/10/17 07:42 09/10/17 09:52 09/10/17 07:42 Laboratory Results 09/10/17 05:50 09/10/17 05:50 09/09/17 09/10/17 09/11/17 05:59 05:59 05:59 Intake Total 2500 1979 Output Total 900 Balance 1600 1979 PT 14.0 SEC (12.0-15.0) 09/02/17 10:18 INR 1.09 (0.83-1.16) 09/02/17 10:18 - Physical Exam Constitutional: no apparent distress, obese Cardiovascular: regular rate and rhythym, no murmur, rub, or gallop Respiratory: no respiratory distress, no rales or rhonchi, clear to auscultation Gastrointestinal: normoactive bowel sounds, soft, non-tender abdomen, no palpable masses Genitourinary: other (scrotum size decreasing) ICD10 Worksheet Patient Problems: Problems Problem Status Onset Severe sepsis Acute Bilateral lower leg cellulitis Acute Diabetes Acute Cognitive impairment Acute Pyelonephritis Acute
--- NOTE | 2017-09-10 14:32 | SOAPPROG ---
SOAP Progress Note Assessment/Plan: Assessment: right orchitis bilateral hydroceles urinary incontinence Plan: Recommend antibiotics be extended to 2 or 3 weeks given persistently elevated WBC. Consider repeat Scrotal US next week if WBC does not decrease. No workup for incontinence which patient says occurs for him and is likely worsened with diuresis. 09/10/17 14:30 Subjective: Less swelling and pain Objective: Vital Signs Temp Pulse Resp BP Pulse Ox 36.7 C 81 18 129/94 H 92 09/10/17 07:42 09/10/17 09:52 09/10/17 07:42 09/10/17 09:52 09/10/17 07:42 Laboratory Results 09/10/17 05:50 09/10/17 05:50 09/09/17 09/10/17 09/11/17 05:59 05:59 05:59 Intake Total 2500 1980 Output Total 900 Balance 1600 1980 PT 14.0 SEC (12.0-15.0) 09/02/17 10:18 INR 1.09 (0.83-1.16) 09/02/17 10:18 Physical Exam - Physical Exam General Appearance: alert, no apparent distress Respiratory: normal breath sounds Abdomen: soft Male Genitalia: other (soft fluctuant genital exam consistent with hydroceles. Right testicle remains firm and swollen but less tender. No erythema. Incontinence apparent during exam) ICD10 Worksheet Patient Problems: Problems Problem Status Onset Bilateral lower leg cellulitis Acute Cognitive impairment Acute Diabetes Acute Pyelonephritis Acute Severe sepsis Acute
[2017-09-10] MEDS: POTASSIUM CL 10 MEQ TAB PO SCH (15:56)
[2017-09-11] MEDS: ceFAZolin 2 GM in D5W 100 ML IV SCH ×3 (01:54→16:52)
[2017-09-11 06:02] LABS: PLATELET COUNT 434 10^3/uL (150-400)
[2017-09-11] MEDS: TAMSULOSIN HCL 0.4 MG CAP PO SCH (08:21)
[2017-09-11] MEDS: POTASSIUM CL 20 MEQ TAB PO SCH (08:21)
[2017-09-11] MEDS: ATORVASTATIN CALCIUM 40 MG TAB PO SCH (08:21)
[2017-09-11] MEDS: METOLAZONE 2.5 MG TAB PO SCH (08:21)
[2017-09-11] MEDS: CARVEDILOL 3.125 MG TAB PO SCH ×2 (08:21→16:51)
[2017-09-11] MEDS: INSULIN GLARGINE 100 UNITS/ML SYRINGE SC SCH ×4 (08:22→20:48)
[2017-09-11] MEDS: INSULIN LISPRO 100 UNIT/ML SC SCH ×3 (08:22→18:15)
[2017-09-11] MEDS: FINASTERIDE 5 MG TAB PO SCH (08:22)
[2017-09-11] MEDS: PREGABALIN 50 MG CAP PO SCH ×3 (08:22→20:49)
[2017-09-11] MEDS: AVEENO LOTION TP SCH ×2 (08:25→20:46)
[2017-09-11] MEDS: ENOXAPARIN 40 MG/0.4 ML SYR SC SCH ×2 (08:26→22:36)
[2017-09-11] MEDS ORDERED: FUROSEMIDE 40 MG/4 ML VIAL IVP ONE (11:00)
[2017-09-11] MEDS: FUROSEMIDE 100 MG/10 ML VIAL IVP ONE ×2 (11:47→11:49)
--- NOTE | 2017-09-11 14:22 | HOSPPROG ---
Hospitalist Progress Note Assessment/Plan: * Sepsis * Scrotal cellulitis, orchitis, possible pyocele -IV ancef -urology recommends 2-3 weeks antibiotics -will consult ID * COR Pulmonale - right heart failure - massive volume overload with scrotal edema -restart IV lasix -elevate scrotum as able * CKD - at baseline creatinine 1.4 * Agitation - very aggressive with staff -try low dose zyprexa * DM II - HgA1c 11 - uncontrolled -U500 at home, around 300 units per day -continue to increase Lantus as needed * Morbid obesity BMI 45 * BPH - flomax * TEJ - CPAP intolerant Subjective: no new complaints Objective: Vital Signs Temp Pulse Resp BP Pulse Ox 37.3 C 85 16 117/73 91 L 09/11/17 08:00 09/11/17 08:21 09/11/17 08:00 09/11/17 08:21 09/11/17 08:00 Laboratory Results 09/11/17 05:50 09/11/17 12:55 09/10/17 09/11/17 09/12/17 05:59 05:59 05:59 Intake Total 1979 3140 Balance 1979 3140 PT 14.0 SEC (12.0-15.0) 09/02/17 10:18 INR 1.09 (0.83-1.16) 09/02/17 10:18 CXR viewed, my personal interpretation is - elevated right hemidiaphragm scrotal us - possible pyocele - Physical Exam Constitutional: no apparent distress, appears nourished, not in pain Cardiovascular: regular rate and rhythym, no murmur, rub, or gallop, edema ( massive scrotal edema) Respiratory: no respiratory distress, no rales or rhonchi, clear to auscultation Gastrointestinal: normoactive bowel sounds, soft, non-tender abdomen, no palpable masses Skin: no rashes or abrasions, no fluctuance, no induration Neurologic: AAOx3, sensation intact bilaterally Psychiatric: interacting appropriately, not encephalopathic, thought process linear, anxious, agitated ICD10 Worksheet Patient Problems: Problems Problem Status Onset Bilateral lower leg cellulitis Acute Cognitive impairment Acute Diabetes Acute Pyelonephritis Acute Severe sepsis Acute
[2017-09-11] MEDS: FUROSEMIDE 40 MG/4 ML VIAL IVP SCH (15:31)
[2017-09-11] MEDS: POTASSIUM CL 10 MEQ TAB PO SCH (15:31)
[2017-09-11] MEDS: oxyCODONE IR 5 MG TAB PO PRN ×2 (17:22→23:57)
[2017-09-11] MEDS: OLANZapine 2.5 MG TAB PO SCH (20:49)
[2017-09-12] MEDS: ceFAZolin 2 GM in D5W 100 ML IV SCH ×3 (00:04→16:42)
[2017-09-12 04:51] LABS: PLATELET COUNT 436 10^3/uL (150-400)
[2017-09-12] MEDS ORDERED: PROTOCOL POTASSIUM 1 DOSE MISC PRN (08:33)
[2017-09-12] MEDS: FUROSEMIDE 40 MG/4 ML VIAL IVP SCH ×3 (08:53→22:03)
[2017-09-12] MEDS: POTASSIUM CL 20 MEQ TAB PO SCH (08:57)
[2017-09-12] MEDS: ATORVASTATIN CALCIUM 40 MG TAB PO SCH (08:57)
[2017-09-12] MEDS: OLANZapine 2.5 MG TAB PO SCH ×2 (08:57→20:37)
[2017-09-12] MEDS: CARVEDILOL 3.125 MG TAB PO SCH ×2 (08:58→17:02)
[2017-09-12] MEDS: TAMSULOSIN HCL 0.4 MG CAP PO SCH (08:58)
[2017-09-12] MEDS: FINASTERIDE 5 MG TAB PO SCH (08:58)
[2017-09-12] MEDS: METOLAZONE 2.5 MG TAB PO SCH (08:59)
[2017-09-12] MEDS: INSULIN LISPRO 100 UNIT/ML SC SCH ×3 (08:59→17:27)
[2017-09-12] MEDS: INSULIN GLARGINE 100 UNITS/ML SYRINGE SC SCH ×4 (09:00→20:40)
[2017-09-12] MEDS: ENOXAPARIN 40 MG/0.4 ML SYR SC SCH ×2 (09:02→20:39)
[2017-09-12] MEDS: PREGABALIN 50 MG CAP PO SCH ×4 (09:52→22:02)
[2017-09-12] MEDS ORDERED: POTASSIUM CL 10 MEQ TAB PO ONE ×2 (12:16→20:05)
--- NOTE | 2017-09-12 14:23 | HOSPPROG ---
Hospitalist Progress Note Assessment/Plan: * Sepsis * Scrotal cellulitis, orchitis, possible pyocele -IV ancef -urology recommends 2-3 weeks antibiotics -will consult ID * COR Pulmonale - right heart failure - massive volume overload with scrotal edema -IV lasix + metolazone - follow daily weights -elevate scrotum as able * CKD - at baseline creatinine 1.6 * Agitation - very aggressive with staff -low dose zyprexa * DM II - HgA1c 11 - uncontrolled -U500 at home, around 300 units per day -continue to increase Lantus as needed * Morbid obesity BMI 45 * BPH - flomax * TEJ - CPAP intolerant Subjective: Anxious to get swelling off Objective: Vital Signs Temp Pulse Resp BP Pulse Ox 36.7 C 75 15 136/79 H 89 L 09/12/17 08:00 09/12/17 08:00 09/12/17 08:00 09/12/17 08:00 09/12/17 08:00 Laboratory Results 09/12/17 04:10 09/12/17 04:10 09/11/17 09/12/17 09/13/17 05:59 05:59 05:59 Intake Total 3140 2308 Balance 3140 2308 PT 14.0 SEC (12.0-15.0) 09/02/17 10:18 INR 1.09 (0.83-1.16) 09/02/17 10:18 - Physical Exam Constitutional: no apparent distress, appears nourished, not in pain Cardiovascular: regular rate and rhythym, no murmur, rub, or gallop, edema (3+ with massive scrotal edema) Respiratory: no respiratory distress, no rales or rhonchi, clear to auscultation Skin: no rashes or abrasions, no fluctuance, no induration Neurologic: AAOx3, sensation intact bilaterally Psychiatric: interacting appropriately, not anxious, not encephalopathic, thought process linear ICD10 Worksheet Patient Problems: Problems Problem Status Onset Bilateral lower leg cellulitis Acute Cognitive impairment Acute Diabetes Acute Pyelonephritis Acute Severe sepsis Acute
--- NOTE | 2017-09-12 16:19 | ASMTCMCOM ---
CM Note CM Note Notes: Pt still not cleared for d/c. D/c plan is still to return to [facility]. Date Signed: 09/12/2017 04:18 PM Electronically Signed By:ORVILLE Perales
--- NOTE | 2017-09-12 16:19 | ASMTCMCOM ---
CM Note CM Note Notes: Pt still not cleared for d/c. D/c plan is still to return to [facility]. Date Signed: 09/12/2017 04:18 PM Electronically Signed By:ORVILLE Perales
[2017-09-12] MEDS: POTASSIUM CL 10 MEQ TAB PO SCH ×2 (16:42→17:02)
[2017-09-12] MEDS: AVEENO LOTION TP SCH ×2 (16:47→22:04)
[2017-09-12] MEDS ORDERED: INSULIN LISPRO 100 UNIT/ML SC ONE (21:50)
[2017-09-12] MEDS: oxyCODONE IR 5 MG TAB PO PRN (22:02)
[2017-09-13] MEDS: ceFAZolin 2 GM in D5W 100 ML IV SCH ×2 (01:27→08:30)
[2017-09-13] MEDS: FUROSEMIDE 40 MG/4 ML VIAL IVP SCH (05:23)
[2017-09-13 05:39] LABS: PLATELET COUNT 472 10^3/uL (150-400)
[2017-09-13] MEDS ORDERED: POTASSIUM CL 10 MEQ TAB PO ONE ×2 (07:23→20:11)
[2017-09-13] MEDS: INSULIN LISPRO 100 UNIT/ML SC SCH ×2 (08:19→11:51)
[2017-09-13] MEDS: TAMSULOSIN HCL 0.4 MG CAP PO SCH (08:20)
[2017-09-13] MEDS: FINASTERIDE 5 MG TAB PO SCH (08:20)
[2017-09-13] MEDS: INSULIN GLARGINE 100 UNITS/ML SYRINGE SC SCH ×4 (08:20→22:02)
[2017-09-13] MEDS: PREGABALIN 50 MG CAP PO SCH ×3 (08:21→22:02)
[2017-09-13] MEDS: ATORVASTATIN CALCIUM 40 MG TAB PO SCH (08:21)
[2017-09-13] MEDS: OLANZapine 2.5 MG TAB PO SCH (08:21)
[2017-09-13] MEDS: CARVEDILOL 3.125 MG TAB PO SCH ×2 (08:21→18:13)
[2017-09-13] MEDS: POTASSIUM CL 20 MEQ TAB PO SCH (08:23)
[2017-09-13] MEDS: METOLAZONE 2.5 MG TAB PO SCH (08:23)
[2017-09-13] MEDS: ENOXAPARIN 40 MG/0.4 ML SYR SC SCH ×2 (08:30→22:01)
[2017-09-13] MEDS ORDERED: acetaZOLAMIDE 500 MG in SYRINGE 0 ML IVP ONE (08:38)
[2017-09-13] MEDS ORDERED: FUROSEMIDE 40 MG/4 ML VIAL IVP SCH (09:00)
[2017-09-13] MEDS: AVEENO LOTION TP SCH ×2 (10:07→22:03)
[2017-09-13] MEDS ORDERED: OLANZapine 2.5 MG TAB PO PRN (12:46)
[2017-09-13] MEDS ORDERED: D50W 25 GM/50 ML SYR IVP PRN (12:48)
--- NOTE | 2017-09-13 13:40 | GCON ---
[f rep st] CONSULTATION INFECTIOUS DISEASE CONSULTATION DATE OF CONSULTATION: 09/13/2017 REFERRING PHYSICIAN: Karine Stephen MD REASON FOR CONSULTATION: Right-sided orchitis. HISTORY OF PRESENT ILLNESS: Patient is a 57-year-old male with a past medical history of congestive heart failure and diabetes mellitus with chronic lower extremity edema who I am asked to see in consultation for right-sided orchitis. Patient describes requiring an indwelling Perera catheter periodically and most recently in July for approximately 3 or 4 weeks related to urinary retention. He has experienced catheter associated UTI in the past. Over the last month, the patient notes that he has experienced increasing swelling, which has ultimately involved the genital region. Approximately 10 days ago, he developed significant increase in testicular pain, prompting further evaluation. He had subjective fever and chills associated with the increase in pain. He did not experience dysuria. Upon presentation, he was noted to have a white count of 17,000. Testicular ultrasound was obtained, which showed normal appearing testes with bilateral large hydroceles with some septation present on the right suggestive of possible pyocele. The patient notes that his right testicle has been quite firm in texture. He was initially treated with ceftriaxone, which subsequently was transitioned to cefazolin. This transition occurred on 09/07/2017. Urine culture that was obtained at time of presentation shows growth of E coli, which is resistant to levofloxacin, but otherwise susceptible to tested agents. He also had a wound swab of a leg ulceration obtained, which showed presence of group A Streptococcus. Patient feels like he has been experiencing gradual improvement, although he has ongoing firm texture to the right testicle with continued tenderness. He has faint erythema over his scrotal region and notes a leathery thickening. His white blood cell count has remained elevated between 11,000 and 14,000 recently. Given the above findings, I am now asked to assist in his ongoing management. PAST MEDICAL HISTORY: Congestive heart failure with chronic lower extremity edema, diabetes mellitus, hypertension, hyperlipidemia, obesity, obstructive sleep apnea, BPH, possible neurogenic bladder, chronic pain. PAST SURGICAL HISTORY: Patient notes prior Perera catheter requirements for urinary retention. CURRENT MEDICATIONS: Cefazolin 2 g IV q.8 hours, Flomax 0.8 mg p.o. daily, Lipitor 40 mg p.o. daily, Coreg 3.125 mg p.o. b.i.d., Aveeno lotion applied b.i.d., Lovenox 40 mg subcu b.i.d., Proscar 5 mg p.o. daily, Lasix 60 mg IV b.i.d., Lantus insulin 150 units subcu b.i.d., insulin sliding scale, Zyprexa 2.5 mg p.o. b.i.d., Lyrica 100 mg p.o. t.i.d. ALLERGIES: Penicillin as a child with unclear reaction. No problems with cefazolin. SOCIAL HISTORY: Patient does not smoke, drink alcohol, or use drugs. FAMILY HISTORY: Diabetes mellitus. REVIEW OF SYSTEMS: Outside that noted in the HPI, remainder of 10 system review is unremarkable. PHYSICAL EXAMINATION: VITAL SIGNS: Temperature maximum 37.4, temperature current 36.7, heart rate 94, respiratory rate 18, blood pressure 130/81, oxygen saturation 93% on room air. GENERAL: Patient is an obese male in no acute distress. He appears nontoxic. HEENT: There is no scleral icterus, conjunctival injection, or conjunctival petechiae. Oropharynx shows moist mucous membranes with no thrush. There is no tenderness over the frontal, maxillary, or mastoid area. There is no nasal discharge. NECK: Supple without palpable lymphadenopathy or thyromegaly. CHEST: Clear to auscultation bilaterally without adventitious sounds. The respiratory effort is normal. CARDIOVASCULAR: Regular rate and rhythm without murmurs, gallops, or rubs. ABDOMEN: Obese, nontender, nondistended. Organomegaly assessment is limited by body habitus. Bowel sounds are present. MUSCULOSKELETAL: There is 3+ edema of both lower extremities. : There is scrotal edema and thickening, with faint overlying erythema; the right testicle is enlarged and firm to palpation with mild tenderness; there are no palpable fluctuant areas. It is difficult to retract the penile foreskin, and when done, there is a small amount of purulent liquid, which drains. SKIN: Bilateral venous insufficiency changes of the lower extremity; small ulceration laterally on left. No active cellulitis present. NEUROLOGIC: Patient is alert and interacts appropriately with examiner. Cranial nerves 2-12 are grossly intact. Sensation is grossly intact. LYMPHATICS: There are no cervical or supraclavicular nodes. No lymphangitis in the lower extremities. LABORATORY/IMAGING: White blood cell count 14.9, hematocrit 35.9, platelets 472 , neutrophils 78%. Serum creatinine is 1.9. Urinalysis on 09/06/2017, showed 50-182 white blood cells. Urine culture on 09/02/2017, shows greater than 100, 000 E coli resistant to fluoroquinolones. Leg swab on 09/02/2017, showed group A Streptococcus. Urine culture on 09/06/2017 shows greater than 100,000 Lissa glabrata. Ultrasound as outlined above from 09/02/2017, which was reviewed by me with Radiology today. IMPRESSION: Right-sided orchitis associated with chronic lower extremity and more recent scrotal edema related to congestive heart failure: Most likely, this will be due to enteric tracy. Urine culture shows isolation of Escherichia coli, but this may not be the only contributing pathogen. Initial ultrasound shows some septations within hydrocele raising question of superinfection in this space. He has gradually improved with antibiotic therapy. Anticipate this will be a slow resolution. Given the septations previously present on ultrasound, we will reassess with repeat ultrasound to determine if this has resolved or if further considerations for infected hydrocele remain. RECOMMENDATIONS: 1. Ceftriaxone 2 g IV q.24 hours as this will provide broader activity against other potential enteric gram-negative organisms. 2. Discontinue cefazolin. 3. Testicular ultrasound. 4. Follow clinical response to above measures and repeat ultrasound findings as available. 5. Will review further with Urology once ultrasound has been performed. Thank you for this consultation. We will continue to follow the patient with you. /[id number]/MODL MTDD
--- NOTE | 2017-09-13 15:31 | HOSPPROG ---
Hospitalist Progress Note Assessment/Plan: * Sepsis * Scrotal cellulitis, orchitis, possible pyocele/infected hydrocele -IV ceftriaxone per ID -urology following - ? prolonged abx vs. intervention * COR Pulmonale - right heart failure - massive volume overload with scrotal edema -IV lasix + metolazone - follow daily weights -elevate scrotum as able -hold diuretic today given creatinine elevation -Diamox x 1 for contraction alkalosis * CKD - baseline creatinine 1.6 -check renal US as recent history of urinary retention requiring recinos * Agitation - very aggressive with staff at times -low dose zyprexa prn -staff concerned he is depressed - consider psych consult - will consult Yudi Mercer * DM II - HgA1c 11 - uncontrolled -U500 at home, around 300 units per day equivalent -continue to increase Lantus as needed -change sliding scale to very high dose regular * Morbid obesity BMI 45 * BPH - flomax, proscar * TEJ - CPAP intolerant Subjective: Scrotum is getting better Objective: Vital Signs Temp Pulse Resp BP Pulse Ox 36.7 C 94 18 130/81 H 93 09/13/17 08:00 09/13/17 08:21 09/13/17 08:00 09/13/17 08:21 09/13/17 08:00 Laboratory Results 09/13/17 05:30 09/13/17 05:30 09/12/17 09/13/17 09/14/17 05:59 05:59 05:59 Intake Total 2308 3500 Balance 2308 3500 PT 14.0 SEC (12.0-15.0) 09/02/17 10:18 INR 1.09 (0.83-1.16) 09/02/17 10:18 d/w Dr. Quezada regarding consultation today Scrotal US - mostly the same - Physical Exam Constitutional: no apparent distress, appears nourished, not in pain Cardiovascular: regular rate and rhythym, no murmur, rub, or gallop, edema (3+ but much better. Scrotum still very swollen but improved, indurated) Respiratory: no respiratory distress, no rales or rhonchi, clear to auscultation Gastrointestinal: normoactive bowel sounds, soft, non-tender abdomen, no palpable masses Skin: no rashes or abrasions, no fluctuance, no induration Neurologic: AAOx3, sensation intact bilaterally Psychiatric: interacting appropriately, not anxious, not encephalopathic, thought process linear ICD10 Worksheet Patient Problems: Problems Problem Status Onset Bilateral lower leg cellulitis Acute Cognitive impairment Acute Diabetes Acute Pyelonephritis Acute Severe sepsis Acute
[2017-09-13] MEDS: cefTRIAXone 2 GM in D5W 50 ML IV SCH (15:39)
[2017-09-13] MEDS: POTASSIUM CL 10 MEQ TAB PO SCH (15:40)
[2017-09-13] MEDS: INSULIN REGULAR HUMAN 100 UNIT/ML SC SCH ×2 (18:13→22:34)
[2017-09-13] MEDS: oxyCODONE IR 5 MG TAB PO PRN (22:02)
[2017-09-13] MEDS: SENNOSIDES/DOCUSATE SODIUM TAB PO PRN (22:03)
[2017-09-14 07:02] LABS: PLATELET COUNT 439 10^3/uL (150-400)
[2017-09-14] MEDS ORDERED: POTASSIUM CL 10 MEQ TAB PO ONE ×2 (08:03→19:26)
[2017-09-14] MEDS: INSULIN REGULAR HUMAN 100 UNIT/ML SC SCH ×4 (08:32→21:16)
[2017-09-14] MEDS: INSULIN GLARGINE 100 UNITS/ML SYRINGE SC SCH ×4 (08:33→21:10)
[2017-09-14] MEDS: POTASSIUM CL 20 MEQ TAB PO SCH (08:47)
[2017-09-14] MEDS: TAMSULOSIN HCL 0.4 MG CAP PO SCH (08:47)
[2017-09-14] MEDS: FINASTERIDE 5 MG TAB PO SCH (08:47)
[2017-09-14] MEDS: PREGABALIN 50 MG CAP PO SCH ×3 (08:47→21:10)
[2017-09-14] MEDS: ATORVASTATIN CALCIUM 40 MG TAB PO SCH (08:47)
[2017-09-14] MEDS: CARVEDILOL 3.125 MG TAB PO SCH ×2 (08:47→18:26)
[2017-09-14] MEDS: cefTRIAXone 2 GM in D5W 50 ML IV SCH (08:48)
[2017-09-14] MEDS ORDERED: MICONAZOLE NITRATE 28 GM CRTUBE TP PRN (09:00)
[2017-09-14] MEDS: ENOXAPARIN 40 MG/0.4 ML SYR SC SCH ×2 (09:07→21:12)
--- NOTE | 2017-09-14 11:04 | WOCRNPDOC ---
WOCRN Advanced Assessment Note - Skin Integrity Problem, Advanced Assess Left Lower Lateral Leg Venous Stasis Ulcer Dressing Type: Trace Bandage (patient preference), Allevyn Life, Hydrofera Blue Ready Dressing Description: Clean/Dry, Intact Exudate Amount: None Integumentary Issue Intervention: Visualized Under Dressing My Wound Tissue: Intact My Wound Swelling: Moderate Wound Bed Color: Brown (dried) Wound Bed Constitution: Scab Wound Edges: Well Defined Skin Integrity Problem Comment: Visualized under Allevyn. Largest wound on the most lateral aspect dried, scabbed over and could benefit from some moisture. Will change wound orders to Allevyn as HFB is no longer needed. The medial wounds are also dry and flaky. Anterior allevyn was removed and skin under intact and healed - no need to replace this dressing. Legs rewrapped with trace bandage over allevyn (per patient preference), and spadigrip reapplied. Wound care will round again early next week.
[2017-09-14] MEDS: AVEENO LOTION TP SCH ×2 (12:16→21:12)
[2017-09-14] MEDS: FUROSEMIDE 40 MG TAB PO SCH ×2 (12:23→16:37)
--- NOTE | 2017-09-14 15:32 | ASMTCMCOM ---
CM Note CM Note Notes: Dr. Winslow indicated that there is a chance that patient will discharge on . 09/15 depending on Infectious disease assessment. Still unknown if patient will discharge home to LTC on IV antibiotics. Patient had Behavioral health consult with Yudi Mercer today. Patient Rep, Sapna, here to see patient at RN s request. Spoke with Delia rivas at [facility] [phone], to let her know there is a possibility that he may discharge tomorrow. Case Management will follow. Date Signed: 09/14/2017 03:31 PM Electronically Signed By:ORVILLE Clifton
--- NOTE | 2017-09-14 15:32 | ASMTCMCOM ---
CM Note CM Note Notes: Dr. Winslow indicated that there is a chance that patient will discharge on . 09/15 depending on Infectious disease assessment. Still unknown if patient will discharge home to LTC on IV antibiotics. Patient had Behavioral health consult with Yudi Mercer today. Patient Rep, Sapna, here to see patient at RN s request. Spoke with Delia rivas at [facility] [phone], to let her know there is a possibility that he may discharge tomorrow. Case Management will follow. Date Signed: 09/14/2017 03:31 PM Electronically Signed By:ORVILLE Clifton
--- NOTE | 2017-09-14 15:32 | ASMTCMCOM ---
CM Note CM Note Notes: Dr. Winslow indicated that there is a chance that patient will discharge on . 09/15 depending on Infectious disease assessment. Still unknown if patient will discharge home to LTC on IV antibiotics. Patient had Behavioral health consult with Yudi Mercer today. Patient Rep, Sapna, here to see patient at RN s request. Spoke with Delia rivas at [facility] [phone], to let her know there is a possibility that he may discharge tomorrow. Case Management will follow. Date Signed: 09/14/2017 03:31 PM Electronically Signed By:ORVILLE Clifton
--- NOTE | 2017-09-14 15:44 | PCMIDPN ---
Assessment/Plan: # Scrotal cellulitis, orchitis, consideration of possible pyocele/infected hydrocele but degree of inflammation on exam + stable ultrasound goes against infected hydrocele. --another week of IV ceftriaxone seems like a reasonable approach to resolve cellulitis, 09/21/17 stop date --worsening renal function, no change in dose of ceftriaxone. Medication Cefazolin 2 g IV Q 8 09/07/2017 through 09/13/2027 Ceftriaxone 1 g IV daily 09/02 through 09/06, 2 g starting 09/13 to current Subjective: Patient feels inflammation associated with his scrotum is significantly improved. It is gone from cantaloupe size to grapefruit size. Denies difficulty with urination Objective: Vital Signs Temp Pulse Resp BP Pulse Ox 37.1 C 99 18 133/74 H 90 L 09/14/17 07:51 09/14/17 07:51 09/14/17 07:51 09/14/17 07:51 09/14/17 07:51 Laboratory Results 09/14/17 06:45 09/14/17 06:45 09/13/17 09/14/17 09/15/17 05:59 05:59 05:59 Intake Total 3500 4000 550 Balance 3500 4000 550 - Physical Exam General Appearance: alert, no apparent distress, obese EENT: scleral icterus Respiratory: No accessory muscle use Extremities: pedal edema Abdomen: non-tender, soft Male Genitalia: scrotal edema, other (Penis not visible, urine draining from mid scrotal area. Significant edema with peau de orange appearance. Mild erythema but no warmth; mild induration, surprisingly minimal tenderness ), No inguinal tenderness Skin: No rash Neuro/Psych: alert, other (Sleepy initially) - Line/s RUE PICC Lines: No drainage, No erythema - Time Spent With Patient Time Spent with Patient: greater than 35 minutes (Care coordinated with hospitalist) Time Spent with Patient: Greater than 35 minutes spent on this patients care, greater than 50% of time spent counseling, educating, and coordinating care regarding the above mentioned plan. ICD10 Worksheet Patient Problems: Problems Problem Status Onset Bilateral lower leg cellulitis Acute Cognitive impairment Acute Diabetes Acute Pyelonephritis Acute Severe sepsis Acute
[2017-09-14] MEDS: POTASSIUM CL 10 MEQ TAB PO SCH (16:37)
--- NOTE | 2017-09-14 17:45 | HOSPPROG ---
Hospitalist Progress Note Assessment/Plan: 57 yo M presenting with sepsis, and scrotal cellulitis # Sepsis: resolved, 2/2 next # Scrotal cellulitis, orchitis, edema: -possible pyocele/infected hydrocele though seems less likely given US results and significant edema -IV ceftriaxone per ID likely for one more week -continue scrotal elevation -urology following # mario on ckd: baseline creatinine of 1.6, has had some fluctuation but currently elevated again at 1.9. US showing moderate bilateral hydro and urinary retention > 300. Patient refusing recinos. Will dc IV lasix and continue on oral for now to see if improves. # COR Pulmonale - right heart failure - massive volume overload with scrotal edema, 2/2 underlying tej/ohs -as above with worsening renal function, transition to oral lasix -elevate scrotum as able # Agitation - very aggressive with staff at times -low dose zyprexa prn -Yudi Mercer following, today patient quite appropriate and calm # DM II - HgA1c 11 - uncontrolled -sugars here running > 350 almost continuously, refuses diabetic diet -very high dose sliding scale and 150bid lantus, will increase to 175 # Morbid obesity BMI 45 # BPH - flomax, proscar # TEJ - CPAP intolerant # dvt ppx: lovenox, intermittently refuses # dispo: IP status, likely can dc in coming 1-2 days Patient new to my care. Old records reviewed and summarized as above. Care plan reviewed with ID. Subjective: no significant overnight events, patient currently feeling a bit better though still having scrotal swelling and pain, eager for dc Objective: Vital Signs Temp Pulse Resp BP Pulse Ox 37.1 C 88 18 136/79 H 91 L 09/14/17 17:14 09/14/17 17:14 09/14/17 17:14 09/14/17 17:14 09/14/17 17:14 Laboratory Results 09/14/17 06:45 09/14/17 06:45 09/13/17 09/14/17 09/15/17 05:59 05:59 05:59 Intake Total 3500 4000 550 Balance 3500 4000 550 PT 14.0 SEC (12.0-15.0) 09/02/17 10:18 INR 1.09 (0.83-1.16) 10/19/17 10:18 awake alert nad anicteric op clear rrr no mrg cta dec bs at bases soft nt nd 2+ pitting edema ble warm dry well perfused oriented appropriate ICD10 Worksheet Patient Problems: Problems Problem Status Onset Severe sepsis Acute Bilateral lower leg cellulitis Acute Diabetes Acute Cognitive impairment Acute Pyelonephritis Acute
[2017-09-14] MEDS: oxyCODONE IR 5 MG TAB PO PRN (21:05)
[2017-09-14] MEDS: SENNOSIDES/DOCUSATE SODIUM TAB PO PRN (21:06)
[2017-09-15] MEDS: oxyCODONE IR 5 MG TAB PO PRN (04:15)
[2017-09-15 04:38] LABS: PLATELET COUNT 376 10^3/uL (150-400)
[2017-09-15] MEDS: INSULIN REGULAR HUMAN 100 UNIT/ML SC SCH ×2 (05:12→11:38)
[2017-09-15] MEDS ORDERED: POTASSIUM CL 10 MEQ TAB PO ONE (07:37)
[2017-09-15 09:02] VITALS: BP 123/72; PULSE 92; RESP 20; TEMP 98.7; O2SAT 88
[2017-09-15] MEDS: cefTRIAXone 2 GM in D5W 50 ML IV SCH (09:07)
[2017-09-15] MEDS: INSULIN GLARGINE 100 UNITS/ML SYRINGE SC SCH ×2 (09:09→09:10)
[2017-09-15] MEDS: FINASTERIDE 5 MG TAB PO SCH (09:10)
[2017-09-15] MEDS: FUROSEMIDE 40 MG TAB PO SCH (09:10)
[2017-09-15] MEDS: TAMSULOSIN HCL 0.4 MG CAP PO SCH (09:10)
[2017-09-15] MEDS: CARVEDILOL 3.125 MG TAB PO SCH (09:11)
[2017-09-15] MEDS: PREGABALIN 50 MG CAP PO SCH (09:12)
[2017-09-15] MEDS: ATORVASTATIN CALCIUM 40 MG TAB PO SCH (09:12)
[2017-09-15] MEDS: POTASSIUM CL 20 MEQ TAB PO SCH (09:12)
[2017-09-15] MEDS: ENOXAPARIN 40 MG/0.4 ML SYR SC SCH (09:13)
--- NOTE | 2017-09-15 10:17 | PDIAF ---
- Diagnosis Code Status: Do Not Resuscitate - Medication Management Discharge Medications: Medications to Continue on Transfer Atorvastatin Calcium [Lipitor 40 mg (*)] 40 mg PO DAILY 09/02/17 [Last Taken ] Carvedilol [Coreg (*)] 3.125 mg PO BIDMEAL 09/02/17 [Last Taken 09/02/17] Finasteride [Proscar 5 MG (*)] 5 mg PO DAILY 09/02/17 [Last Taken 09/02/17] Insulin Regular, Human [Humulin R U-500] 0 unit SQ TIDMEAL 09/02/17 [Last Taken Unknown] Miconazole Nitrate [Desenex] 1 leonard TP BID PRN 09/02/17 [Last Taken Unknown] Oxybutynin Chloride Xl [Ditropan Xl 5mg (*)] 5 mg PO DAILY 09/02/17 [Last Taken 09/02/17] Potassium Cl [Klor-Con 20 meq (*)] 20 meq PO BID 09/02/17 [Last Taken 09/02/17] Pregabalin [Lyrica 50mg (*)] 100 mg PO TID 09/02/17 [Last Taken 09/02/17] Sennosides/Docusate Sodium [Senna-S Tablet] 1 each PO DAILY PRN 09/02/17 [Last Taken Unknown] Tamsulosin HCl [Flomax 0.4 MG (*)] 0.8 mg PO DAILY 09/02/17 [Last Taken 09/02/17 ] oxyCODONE IR [Oxycodone Ir (*)] 10 mg PO Q6HRS PRN 09/02/17 [Last Taken 09/02/17 ] Acetaminophen [Tylenol 325mg (*)] 650 mg PO Q4HRS PRN tab 09/15/17 [Last Taken Unknown] Alteplase [Cathflo Activase 2 mg (*)] 2 mg IVP PRN PRN vial 09/15/17 [Last Taken Unknown] Colloidal Oatmeal [Aveeno Lotion] 1 leonard TP BID lotion 09/15/17 [Last Taken Unknown] Furosemide [Lasix 40 MG (*)] 60 mg PO BID@0900,1500 #0 tab 09/15/17 [Last Taken Unknown] OLANZapine [ZyPREXA 2.5 mg (*)] 2.5 mg PO BID PRN tab 09/15/17 [Last Taken Unknown] cefTRIAXone [Rocephin] 2 gm IV DAILY 6 Days 09/15/17 [Last Taken Unknown] Discharge Medications: Refer to the Discharge Home Medication list for PRN reason. PICC Care - Routine: Yes (can dc PICC after last dose of Antibiotics on 09/21) - Orders Services needed: Registered Nurse, Certified Security And Compliance Analyst, Physical Therapy, Occupational Therapy Diet Recommendation: sodium restricted, ADA 2000 consistent carb Weigh Patient: daily Wound Care Instructions: please see discharge orders for wound care instructions Activity/Weight Bearing Restrictions: as tolerated - Labs/Radiology BMP Date: 09/17/17 FBS Date: 09/22/17 ([facility]) - Follow Up Care Current Providers and Referrals: Patient,NotPresent [Unknown] - As per Instructions
--- NOTE | 2017-09-15 10:46 | ASMTCMCOM ---
CM Note CM Note Notes: Pt ready for DC back to [facility] today. B/M alerted to new PICC and need for IV ABX until 09/21. Final orders faxed. Taxi voucher provided for pt so he can stop at bank. Date Signed: 09/15/2017 10:45 AM Electronically Signed By:Cheri Barajas LCSW
--- NOTE | 2017-09-15 10:46 | ASMTCMCOM ---
CM Note CM Note Notes: Pt ready for DC back to [facility] today. B/M alerted to new PICC and need for IV ABX until 09/21. Final orders faxed. Taxi voucher provided for pt so he can stop at bank. Date Signed: 09/15/2017 10:45 AM Electronically Signed By:Cheri Barajas LCSW
[2017-09-15] MEDS: AVEENO LOTION TP SCH (11:37)
--- NOTE | 2017-09-15 16:49 | ASDISCHSUM ---
Discharge Information Plan Status:SNF Medically Cleared to Leave: Discharge Date:09/15/2017 12:13 PM CM D/C Disposition:Rehab [facility] ADT D/C Disposition:Intermediate Facility Projected Discharge Date:09/06/2017 11:00 AM Transportation at D/C: Discharge Delay Reason: Follow-Up Date:09/06/2017 11:00 AM Discharge Slot: Final Diagnosis: Placement Information Referral Type:*Detention/SNF Referral ID:[id number] Provider Name:Jerson Gonzalez/MICHELLE Romero Address 1:[address] Phone Number: Address 2: Fax Number: Juwan:Jerson Selection Factors: State:[place] Patient Contact Information Contact Name:REID Relationship: Address: Home Phone: Work Phone: Juwan: Alex Phone: [facility] Code: Email: Financial Information Financial Class: Primary Plan Desc:[employer] [place] Primary Plan Number:[id number] Secondary Plan Desc: Secondary Plan Number: Assessment Information [facility] CM Progress Note CM Note CM Note Notes: Pt admitted from [facility] where he has a snf care bed. Plan is for pt to return at [place]. Faxed clinicals to Rosario at / today. /M to follow. Date Signed: 09/03/2017 03:42 PM Electronically Signed By:Cheri Barajas LCSW LACE MAIA Length of stay for Answers: 2 days current admission Comorbidities - select Answers: Previous myocardial all that apply infarction Diabetes without complications Emergency dept visits in Answers: 0 last 6 months Score: 4 Date Signed: 09/03/2017 03:47 PM Electronically Signed By:Cheri Barajas LCSW [facility] CM Progress Note CM Note CM Note Notes: Plan is for patient to return to [facility]. He is however not ready to discharge. Case management will continue to follow for discharge needs. Date Signed: 09/06/2017 03:58 PM Electronically Signed By:ORVILLE Clifton BC CM Progress Note CM Note CM Note Notes: Received message from Kristal Salmon that she was notified that patient can return to [facility]. Case management will followup with [facility] and Speak with Jenny from [place] in the morning. Date Signed: 09/06/2017 04:54 PM Electronically Signed By:ORVILLE Clifton BC CM Progress Note CM Note CM Note Notes: Delia at [facility] asked for last two days of prog notes which were faxed. Pt may not be ready for DC for a few more days. Spoke with Delia about possibility of pt going to wound clinic after DC and she was in agreement. C/M to follow. Date Signed: 09/09/2017 10:57 AM Electronically Signed By:DUARTE AquinoW BC CM Progress Note CM Note CM Note Notes: Pt still not cleared for d/c. D/c plan is still to return to [facility]. Date Signed: 09/12/2017 04:18 PM Electronically Signed By:ORVILLE Perales BC CM Progress Note CM Note CM Note Notes: Dr. Winslow indicated that there is a chance that patient will discharge on 09/15 depending on Infectious disease assessment. Still unknown if patient will discharge home to LTC on IV antibiotics. Patient had Behavioral health consult with Yudi Mercer today. Patient Rep, Sapna, here to see patient at RN s request. Spoke with Delia rivas at [facility] [phone], to let her know there is a possibility that he may discharge tomorrow. Case Management will follow. Date Signed: 09/14/2017 03:31 PM Electronically Signed By:ORVILLE Clifton BC CM Progress Note CM Note CM Note Notes: Pt ready for DC back to [facility] today. B/M alerted to new PICC and need for IV ABX until 09/21. Final orders faxed. Taxi voucher provided for pt so he can stop at [employer]. Date Signed: 09/15/2017 10:45 AM Electronically Signed By:Cheri Barajas LCSW Intervention Information
--- NOTE | 2017-09-15 16:49 | ASDISCHSUM ---
Discharge Information Plan Status:SNF Medically Cleared to Leave: Discharge Date:09/15/2017 12:13 PM CM D/C Disposition:[facility] ADT D/C Disposition:Longterm Facility Projected Discharge Date:09/06/2017 11:00 AM Transportation at D/C: Discharge Delay Reason: Follow-Up Date:09/06/2017 11:00 AM Discharge Slot: Final Diagnosis: Placement Information Referral Type:*Half-Way/SNF Referral ID:[id number] Provider Name:Jerson Gonzalez/MICHELLE Romero Address 1:[address] Phone Number: Address 2: Fax Number: Juwan:Jerson Selection Factors: State:[place] Patient Contact Information Contact Name:REID Relationship: Address: Home Phone: Work Phone: Juwan: Alex Phone: [facility] Code: Email: Financial Information Financial Class: Primary Plan Desc:[employer] [place] Primary Plan Number:[id number] Secondary Plan Desc: Secondary Plan Number: Assessment Information [facility] CM Progress Note CM Note CM Note Notes: Pt admitted from [facility] where he has a fci care bed. Plan is for pt to return at [place]. Faxed clinicals to Rosario at / today. /M to follow. Date Signed: 09/03/2017 03:42 PM Electronically Signed By:Cheri Barajas LCSW [facility] Length of stay for Answers: 2 days current admission Comorbidities - select Answers: Previous myocardial all that apply infarction Diabetes without complications Emergency dept visits in Answers: 0 last 6 months Score: 4 Date Signed: 09/03/2017 03:47 PM Electronically Signed By:Cheri Barajas LCSW [facility] CM Progress Note CM Note CM Note Notes: Plan is for patient to return to [facility]. He is however not ready to discharge. Case management will continue to follow for discharge needs. Date Signed: 09/06/2017 03:58 PM Electronically Signed By:ORVILLE Clifton BC CM Progress Note CM Note CM Note Notes: Received message from Kristal Salmon that she was notified that patient can return to [facility]. Case management will followup with [facility] and Speak with Jenny from [place] in the morning. Date Signed: 09/06/2017 04:54 PM Electronically Signed By:ORVILLE Clifton BC CM Progress Note CM Note CM Note Notes: Delia at [facility] asked for last two days of prog notes which were faxed. Pt may not be ready for DC for a few more days. Spoke with Delia about possibility of pt going to wound clinic after DC and she was in agreement. C/M to follow. Date Signed: 09/09/2017 10:57 AM Electronically Signed By:DUARTE AquinoW BC CM Progress Note CM Note CM Note Notes: Pt still not cleared for d/c. D/c plan is still to return to [facility]. Date Signed: 09/12/2017 04:18 PM Electronically Signed By:ORVILLE Perales BC CM Progress Note CM Note CM Note Notes: Dr. Winslow indicated that there is a chance that patient will discharge on 09/15 depending on Infectious disease assessment. Still unknown if patient will discharge home to LTC on IV antibiotics. Patient had Behavioral health consult with Yudi Mercer today. Patient Rep, Sapna, here to see patient at RN s request. Spoke with Delia rivas at [facility] [phone], to let her know there is a possibility that he may discharge tomorrow. Case Management will follow. Date Signed: 09/14/2017 03:31 PM Electronically Signed By:ORVILLE Clifton BC CM Progress Note CM Note CM Note Notes: Pt ready for DC back to [facility] today. B/M alerted to new PICC and need for IV ABX until 09/21. Final orders faxed. Taxi voucher provided for pt so he can stop at [employer]. Date Signed: 09/15/2017 10:45 AM Electronically Signed By:Cheri Barajas LCSW Intervention Information
--- NOTE | 2017-09-15 16:49 | ASDISCHSUM ---
Discharge Information Plan Status:SNF Medically Cleared to Leave: Discharge Date:09/15/2017 12:13 PM CM D/C Disposition:[facility] ADT D/C Disposition:Care Home Facility Projected Discharge Date:09/06/2017 11:00 AM Transportation at D/C: Discharge Delay Reason: Follow-Up Date:09/06/2017 11:00 AM Discharge Slot: Final Diagnosis: Placement Information Referral Type:*Long-Term/SNF Referral ID:[id number] Provider Name:Jerson Gonzalez/MICHELLE Romero Address 1:[address] Phone Number: Address 2: Fax Number: Juwan:Jerson Selection Factors: State:[place] Patient Contact Information Contact Name:REID Relationship: Address: Home Phone: Work Phone: Juwan: Alex Phone: [facility] Code: Email: Financial Information Financial Class: Primary Plan Desc:[employer] [place] Primary Plan Number:[id number] Secondary Plan Desc: Secondary Plan Number: Assessment Information [facility] CM Progress Note CM Note CM Note Notes: Pt admitted from [facility] where he has a halfway care bed. Plan is for pt to return at [place]. Faxed clinicals to Rosario at / today. /M to follow. Date Signed: 09/03/2017 03:42 PM Electronically Signed By:Cheri Barajas LCSW LACE MAIA Length of stay for Answers: 2 days current admission Comorbidities - select Answers: Previous myocardial all that apply infarction Diabetes without complications Emergency dept visits in Answers: 0 last 6 months Score: 4 Date Signed: 09/03/2017 03:47 PM Electronically Signed By:Cheri Barajas LCSW [facility] CM Progress Note CM Note CM Note Notes: Plan is for patient to return to [facility]. He is however not ready to discharge. Case management will continue to follow for discharge needs. Date Signed: 09/06/2017 03:58 PM Electronically Signed By:ORVILLE Clifton BC CM Progress Note CM Note CM Note Notes: Received message from Kristal Salmon that she was notified that patient can return to [facility]. Case management will followup with [facility] and Speak with Jenny from [place] in the morning. Date Signed: 09/06/2017 04:54 PM Electronically Signed By:ORVILLE Clifton BC CM Progress Note CM Note CM Note Notes: Delia at [facility] asked for last two days of prog notes which were faxed. Pt may not be ready for DC for a few more days. Spoke with Delia about possibility of pt going to wound clinic after DC and she was in agreement. C/M to follow. Date Signed: 09/09/2017 10:57 AM Electronically Signed By:DUARTE AquinoW BC CM Progress Note CM Note CM Note Notes: Pt still not cleared for d/c. D/c plan is still to return to [facility]. Date Signed: 09/12/2017 04:18 PM Electronically Signed By:ORVILLE Perales BC CM Progress Note CM Note CM Note Notes: Dr. Winslow indicated that there is a chance that patient will discharge on 09/15 depending on Infectious disease assessment. Still unknown if patient will discharge home to LTC on IV antibiotics. Patient had Behavioral health consult with Yudi Mercer today. Patient Rep, Sapna, here to see patient at RN s request. Spoke with Delia rivas at [facility] [phone], to let her know there is a possibility that he may discharge tomorrow. Case Management will follow. Date Signed: 09/14/2017 03:31 PM Electronically Signed By:ORVILLE Clifton BC CM Progress Note CM Note CM Note Notes: Pt ready for DC back to [facility] today. B/M alerted to new PICC and need for IV ABX until 09/21. Final orders faxed. Taxi voucher provided for pt so he can stop at [employer]. Date Signed: 09/15/2017 10:45 AM Electronically Signed By:Cheri Barajas LCSW Intervention Information
--- NOTE | 2017-09-16 12:59 | PDDCSUM ---
Discharge Summary Discharge Summary: Dates of service: 09/02-09/15/17 Consultations: urology, ID Procedures performed: testicular US x 2, PICC placement, echocardiogram Hospital course by problem: 57 yo M presenting with sepsis, and scrotal cellulitis # Sepsis: resolved, 2/2 next # Scrotal cellulitis, orchitis, edema: -possible pyocele/infected hydrocele though seems less likely given US results and significant edema -IV ceftriaxone per ID to be continued through 10/01 -continue scrotal elevation # mario on ckd: baseline creatinine of 1.6, has had some fluctuation but elevated again to 2.0 at the time of admission, US revealing moderate hydro and a PVR > 300 but patient refusing recinos. Suspect mario 2/2 both retention and diuresis, he will f/u with his PCP in the coming days for f/u labs and if creatinine is getting worse will need to be pushed further for catheter placement # COR Pulmonale - right heart failure - volume overload with scrotal edema, 2/2 underlying tej/ohs -as above with worsening renal function, transitioned to oral lasix at lower dose than previously, may need to be uptitrated if renal function permits # Agitation - very aggressive with staff at times -low dose zyprexa prn -[facility] following, at time of discharge patient quite appropriate and calm # DM II - HgA1c 11 - uncontrolled -sugars here running > 350 almost continuously, refuses diabetic diet -very high dose sliding scale and 150bid lantus, will increase to 175 # Morbid obesity BMI 45 # BPH - flomax, proscar # TEJ - CPAP intolerant # dvt ppx: lovenox, intermittently refuses dc home f/u with PCP, urology > 35 minutes spent in dc more than half in coordination of care
== END 2017-09-15 12:13 | DRG 872 ==
LOC: F1N 15:13
PROVIDERS: ADMIT Hospitalist; ATTEND Hospitalist
PROC: 02HV33Z Insertion of Infusion Device into Superior Vena Cava, Percutaneous Approach (ICD-10-PCS; principal; 2017-09-03)
DX: A41.51 Sepsis due to Escherichia coli [E. coli] (principal); N17.9 Acute kidney failure, unspecified; Z68.42 Body mass index [BMI] 45.0-49.9, adult; N10 Acute pyelonephritis; I13.0 Hypertensive heart and chronic kidney disease with heart failure and stage 1 through stage 4 chronic kidney disease, or unspecified chronic kidney disease; N45.2 Orchitis; N18.9 Chronic kidney disease, unspecified; I27.81 Cor pulmonale (chronic); E11.69 Type 2 diabetes mellitus with other specified complication; E66.09 Other obesity due to excess calories; N40.1 Benign prostatic hyperplasia with lower urinary tract symptoms; G47.33 Obstructive sleep apnea (adult) (pediatric); I50.9 Heart failure, unspecified; E78.5 Hyperlipidemia, unspecified; D64.9 Anemia, unspecified; E87.6 Hypokalemia; R45.1 Restlessness and agitation
CPT/HCPCS: 82607-90; 82947-QW; 96365; 97116-GP; 97161-GP; 97530-GP; C1751; J0690; J0696; J1120; J1650; J1815; J1940; J1956; J2405; J2997; J3370